=== PATIENT | female | born 1940 | race Caucasian/White ===

== ENCOUNTER 2018-09-15 11:35 | Emergency (ER) | payer MEDICARE, BC ==
[2018-09-15] MEDS ORDERED: Pantoprazole 40 MG Vial IVPUSH ONE (11:46)
[2018-09-15] MEDS ORDERED: Ondansetron 4 MG/2 ML SDV IVPUSH ONE (11:46)
[2018-09-15] MEDS ORDERED: Famotidine 20 MG/2 ML SDV IVPUSH ONE (11:46)
--- NOTE | 2018-09-15 11:46 | EDM.PDOC ---
ED HPI GENERAL MEDICAL PROBLEM - General Chief Complaint: Gastrointestinal Problem Stated Complaint: constipation Time Seen by Provider: 09/15/18 11:45 Source of Information: Reports: Patient, Family (), Old Records ([facility] chart/EMR) History Limitations: Reports: No Limitations - History of Present Illness INITIAL COMMENTS - FREE TEXT/NARRATIVE: The patient was brought to the emergency room via private automobile for evaluation of progressive constipation associated with nonspecific rectal pressure and lower abdominal pain/cramping with some nausea, which she rates at 10/10. Patient has been using OTC laxatives, including Senna and MiraLAX during the last 2-3 days with no results and no bowel movement for at least 8 days. Note the patient was on oxycodone for recent low back surgery as below and discharged on Ultram for pain control. No recent history of other abdominal pain , heartburn, emesis, diarrhea, melena, gross hematochezia, or any food intolerance, including fatty foods, etc.. The patient denies any chest pain/ pressure, heart flutter, dizziness, orthostasis, orthopnea, diaphoresis, paresthesias, recent decreased exercise tolerance, or any other anginal-type symptoms. She denies any gross hematuria, colic, or other UTI symptoms. The patient also denies any recent fever, cough, wheezing, dyspnea, etc.. The symptoms have progressed during the last 2?3 days. Onset: Gradual Onset Date: 09/13/18 Duration: Constant, Getting Worse Location: Reports: Abdomen, Back (Standard postoperative back surgery pain). Denies: Head, Face, Neck, Chest, Pelvis, Upper Extremity, Left, Upper Extremity , Right, Radiates to Quality: Reports: Pressure, Same as Previous Episode Severity: Severe Improves with: Reports: None Worsens with: Reports: None Context: Reports: Other (As above). Denies: Sick Contact, Trauma Associated Symptoms: Reports: Nausea/Vomiting (No emesis). Denies: Confusion, Chest Pain, Cough, Diaphoresis, Fever/Chills, Headaches, Loss of Appetite, Seizure, Shortness of Breath, Weakness Treatments EXHIBIT ARTIST: Reports: Other Medication(s) (As above) Rectal Pain Score (Numeric/FACES): 10 - Related Data Allergies Allergy/AdvReac Type Severity Reaction Status Date / Time codeine Allergy Stomach Verified 09/15/18 11:39 Upset Home Meds: Home Meds ALPRAZolam [Xanax] 0.25 mg PO BEDTIME 07/13/14 [History] Cetirizine HCl [Zyrtec] 10 mg PO DAILY 07/13/14 [History] Potassium Chloride 10 meq PO BID 07/13/14 [History] Omeprazole Magnesium [Prilosec Otc] 20 mg PO DAILY 12/07/15 [History] Acetaminophen [Tylenol] 650 mg PO Q4H PRN 09/15/18 [History] Ascorbate Calcium [Vitamin C] 500 mg PO DAILY 09/15/18 [History] Calcium Citrate/Vitamin D3 [Citracal + D Maximum Caplet] 1 each PO DAILY [History] Fluticasone Propionate [Flonase] 1 inh NS DAILY 09/15/18 [History] Methenamine Hippurate [Hiprex] 1 tab PO DAILY 09/15/18 [History] Polyethylene Glycol 3350 [MiraLAX] 17 gm PO DAILY PRN 09/15/18 [History] Sennosides [Senna] 8.6 mg PO BID PRN 09/15/18 [History] amLODIPine [Norvasc] 10 mg PO DAILY 09/15/18 [History] traMADol [Ultram] 50 mg PO Q4H PRN 09/15/18 [History] Past Medical History HEENT History: Reports: Allergic Rhinitis, Cataract, Impaired Vision, Other ( See Below). Denies: Glaucoma, Hard of Hearing, Macular Degeneration, Otitis Media, Retinal Detachment Other HEENT History: Patient wears glasses. Cardiovascular History: Reports: Arrhythmia, High Cholesterol, Hypertension, PVD , Other (See Below). Denies: Afib, Aneurysm, Blood Clots/VTE/DVT, CAD, Cardiomyopathy, Heart Failure, Heart Murmur, IA, Syncope Other Cardiovascular History: Incomplete right bundle branch block. Mild carotid occlusive disease. Respiratory History: Reports: None, COPD, Intubation, Previous. Denies: Asthma , Bronchitis, Recurrent, Intubation, Difficult, PE, Pneumothorax, Pulmonary Fibrosis, Sleep Apnea, TB Gastrointestinal History: Reports: Cholelithiasis, Chronic Constipation, Diverticulosis, GERD, Hemorrhoids, Hiatal Hernia, Irritable Bowel Syndrome, Other (See Below). Denies: Celiac Disease, Chronic Diarrhea, Colon Polyp, Fecal Incontinence, Gastritis, GI Bleed, Hepatitis, Inflammatory Bowel Disease, Jaundice, Pancreatitis, PUD Other Gastrointestinal History: History of distal esophageal dilatation post EGD on 09/27/12 with no surgery required. Mild mostly sigmoid diverticulosis. Genitourinary History: Reports: Renal Calculus, Urinary Incontinence, UTI, Recurrent, Other (See Below). Denies: Acute Renal Failure, Chronic Renal Insuffiency, STD Other Genitourinary History: Recurrent excited urolithiasis with last episode on 04/28/12 with spontaneous passage at that time. ECHOCARDIOLOGIST History: Reports: Dysfunctional Uterine Bleeding. Denies: : 0 LMP (Approximate): Other (See Below) Other ECHOCARDIOLOGIST History: Post surgical menopause secondary to dysfunctional uterine bleeding as below. Musculoskeletal History: Reports: Arthritis, Back Pain, Chronic, Fracture, Neck Pain, Chronic, Osteoarthritis, Other (See Below). Denies: Fibromyalgia, Gout, RA, SLE Other Musculoskeletal History: L2 vertebral body compression fracture. Multilevel degenerative disc disease including bilateral foraminal stenoses requiring surgeries as below. Neurological History: Reports: Headaches, Chronic, Migraines, Neuropathy, Peripheral. Denies: Alzheimers Disease, Cerebral Aneurysms, Cerebral Palsy, Concussion, CVA, Head Trauma, MS, Parkinson's, Seizure, TIA Psychiatric History: Reports: Anxiety, Depression. Denies: Abuse, Victim of, ADD, ADHD, Addiction, Dementia, Psych Hospitalization(s), PTSD, Suicide Attempt , Suicidal Ideation Endocrine/Metabolic History: Reports: None. Denies: Diabetes, Type I, Diabetes , Type II, Diabetes Mellitus, Type 3c, Hypothyroidism, IDDM, Osteopenia, Osteoporosis Hematologic History: Reports: None. Denies: Anemia, Blood Transfusion(s), Iron Deficiency Immunologic History: Reports: None. Denies: AIDS, HIV, SLE Oncologic (Cancer) History: Reports: Cervix (Abnormal Pap smear with status post hysterectomy for dysfunctional uterine bleeding), Other (See Below). Denies: Basal Cell Carcinoma, Breast, Colon, Hodgkin's Lymphoma, Leukemia, Lymphoma, Malignant Melanoma, Non-Hodgkin's Lymphoma, Ovarian, Squamous Cell Carcinoma, Uterine Other Oncologic History: Abnormal Pap smear with status post hysterectomy for dysfunctional uterine bleeding Dermatologic History: Reports: None. Denies: Eczema, Psoriasis - Infectious Disease History Infectious Disease History: Reports: Influenza (Influenza A on 07/13/14), Mumps. Denies: C-Difficile, Chicken Pox (Patient uncertain), Helicobacter Pylori, Measles, MRSA, Pertussis (Whooping Cough), Rheumatic Fever, RSV, Rubella , Scarlet Fever, Shingles, TB - Past Surgical History Head Surgeries/Procedures: Reports: None HEENT Surgical History: Reports: Adenoidectomy, Cataract Surgery, Tonsillectomy , Other (See Below). Denies: Eye Surgery, Laser Surgery, LASIK, Myringotomy w Tube(s), Naso-Sinus Surgery, Oral Surgery Other HEENT Surgeries/Procedures: Tonsillectomy and adenoidectomy at age 17. Bilateral cataract surgery in about 2015. Cardiovascular Surgical History: Reports: None. Denies: Varicose, Vascular Surgery Respiratory Surgical History: Reports: None. Denies: Thoracentesis GI Surgical History: Reports: EGD, Hernia, Inguinal, Other (See Below). Denies : Hernia, Abdominal, Hernia Repair/Other, Polypectomy Other GI Surgeries/Procedures: Left Sided inguinal hernia repair in June 2018. Distal esophageal dilatation post EGD on 09/27/12. Appendectomy with concomitant cholecystectomy in 1974. Last colonoscopy on 09/27/12 with previous evaluation on 12/23/02. Female Surgical History: Reports: Breast Biopsy, Cervical Cryotherapy, Hysterectomy, Kidney stone extraction, Salpingo-Oophorectomy, Other (See Below) . Denies: Lithotripsy/ESWL, Tubal Ligation Other Female Surgeries/Procedures: Left-sided breast biopsy for benign disease and early 1999. Cervical cryotherapy secondary to cervical dysplasia as above. Complete hysterectomy including bilateral salpingo-oophorectomy secondary to dysfunctional uterine bleeding in 1990. Kidney stone extraction from the right side in about 1974. Bladder suspension in 2006. Endocrine Surgical History: Reports: None. Denies: Thyroid Biopsy Neurological Surgical History: Reports: Discectomy, Laminectomy, Lumbar Spine, Sacral Spine, Spinal Fusion, Other (See Below). Denies: C-Spine, Scoliosis, Thoracic Spine, Vertebroplasty Other Neurological Surgeries/Procedures: Multilevel lumbar and sacral laminectomies, discectomy, and hardware removal on 09/08/18 with similar previous surgery on 08/28/17. L4-S1 spinal fusion on 08/28/15. Musculoskeletal Surgical History: Reports: ORIF, Shoulder Surgery, Other (See Below) Oncologic Surgical History: Reports: Biopsy of Breast, Other (See Below) Other Oncologic Surgeries/Procedures: Benign disease as above. Dermatological Surgical History: Reports: None - Past Imaging History Past Imaging History: Reports: CAT Scan (CT scan of the abdomen and pelvis on . Soft tissue CT of the neck and CT of the chest on 09/27/12.), Mammogram ( Last mammogram in June 2018 by patient history.), MRI (MRI of the lumbar spine on 03/12/18.), Stress Testing (Cardiolite stress test on 07/09/06 with an ejection fraction of 60% with previous similar evaluations on 06/03/04.) Social & Family History - Family History Cardiac: Reports: Bypass, CAD, Hypertension, IA, Pacemaker, Other (See Below). Denies: Afib, Aneurysm, Arrhythmia, Blood Clots/VTE/DVT Other Cardiac Family History: 2 brothers with coronary artery disease and history of CABG. Father with fatal IA at age 59. Mother with fatal IA at age 73. Brother with fatal IA in his late 60s. 3 brothers with MIs in their 40s which needed bypass surgery as above. Another brother with fatal IA early 80s. Another brother with IA at age 74 additional pacemaker placement. First Cousin with fatal IA at age 41. Paternal uncles 3 with fatal MIs. Hypertension in mother and 3 brothers. - Tobacco Use Smoking Status *Q: Never Smoker Tobacco Use Within Last Twelve Months: No Used Tobacco, but Quit: No Smoking Cessation Information Provided To Patient: No Second Hand Smoke Exposure: No Second Hand Smoke Education Provided: No - Caffeine Use Caffeine Use: Reports: Soda (1 soda every 3 weeks.). Denies: Coffee, Energy Drinks, Tea - Alcohol Use Alcohol Use History: Yes Days Per Week of Alcohol Use: 0 Number of Drinks Per Day: 1 Number of Drinks Per Day Comment: Usually mixed drink once per month. No previous DWIs, problems with alcohol abuse, etc. 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 ED EXAM, GI/ABD - Physical Exam Exam: See Below Exam Limited By: No Limitations General Appearance: Alert, WD/WN, No Apparent Distress, Anxious (Moderate) Eyes: Bilateral: Normal Appearance (No nystagmus. Patient wearing glasses.), EOMI Ears: Normal External Exam, Normal Canal, Hearing Grossly Normal, Normal TMs Nose: Normal Inspection, Normal Mucosa, No Blood Throat/Mouth: Normal Inspection, Normal Lips, Normal Teeth, Normal Gums, Normal Oropharynx, Normal Voice, No Airway Compromise. No: Dysphagia, Perioral Cyanosis Head: Atraumatic, Normocephalic. No: Facial Swelling, Facial Tenderness, Sinus Tenderness Neck: Supple, Non-Tender, Full Range of Motion, Carotid Bruit (Mild bilateral carotid bruits). No: Lymphadenopathy (L), Lymphadenopathy (R), Thyromegaly Respiratory/Chest: No Respiratory Distress, Lungs Clear, Normal Breath Sounds, No Accessory Muscle Use, Chest Non-Tender. No: Pleural Rub, Retractions Cardiovascular: Normal Peripheral Pulses, No Gallop, No JVD, No Murmur, No Rub, Tachycardia (Mild with regular rhythm). No: No Edema (Dependent edema as below) , Gallop/S3, Gallop/S4, Friction Rub GI/Abdominal Exam: Normal Bowel Sounds, Soft, Non-Tender, No Organomegaly, No Distention, No Abnormal Bruit, No Mass, Pelvis Stable, Other (Obese). No: Guarding, Rebound (Female) Exam: Deferred Rectal (Female) Exam: Fecal Impaction (Severe), Hemorrhoids (Grade 34 internal/ external hemorrhoids), Other (Brown stool initially with mild gross hematochezia after disimpaction). No: Bloody Stool, Decreased Rectal Tone, Perirectal Abscess, Rectal Fissure, Tenderness (No Marlon space tenderness however rectal vault discomfort secondary to impaction) Back Exam: Normal Inspection, Full Range of Motion. No: CVA Tenderness (L), CVA Tenderness (R), Muscle Spasm Extremities: Normal Range of Motion, Non-Tender, Normal Capillary Refill, Pedal Edema (Trace bilateral pedal/pretibial edema). No: No Pedal Edema, Jennifer's Sign Neurological: Alert, Oriented, CN II-XII Intact, Normal Cognition, Normal Gait, Normal Reflexes (Negative Babinski's), No Motor/Sensory Deficits Psychiatric: Anxious (Moderate), Depressed Mood (Mild to moderate with adequate eye contact) Skin Exam: Ecchymosis (Mild surrounding postsurgical ecchymosis without significant acute bleeding), Rash, Wound/Incision (Large post operative incisions in the lumbar region and right superior pelvic region with Steri- Strips in place. Note some surrounding multiple patches of mild skin inflammation likely secondary to previous dressings during recent hospitalization. No acute drainage or local signs of infection.). No: Diaphoretic, Lymphangitis, Petechiae Lymphatic: No Adenopathy Course - Vital Signs Last Recorded V/S: Last Vital Signs Temp 36.4 C 09/15/18 11:40 Pulse 99 09/15/18 14:05 Resp 16 09/15/18 14:05 BP 140/70 09/15/18 14:05 Pulse Ox 99 09/15/18 14:05 Vital Signs - 24 hr 09/15/18 09/15/18 09/15/18 11:40 12:35 13:45 Temperature [ 36.4 C Oral] Pulse, 133 H 114 H 128 H Peripheral [ Pulse Oximetry] Respiratory 24 H 20 24 H Rate Blood Pressure 127/83 142/77 H 124/73 [Upper Arm] O2 Sat by Pulse 100 99 96 Oximetry 09/15/18 14:05 Temperature [ Oral] Pulse, 99 Peripheral [ Pulse Oximetry] Respiratory 16 Rate Blood Pressure 140/70 [Upper Arm] O2 Sat by Pulse 99 Oximetry - Orders/Labs/Meds Orders: Active Orders 24 hr Category Date Time Status Enema [RC] ASDIRECTED Care 09/15/18 12:41 Active Peripheral IV Care [RC] . DIRECTED Care 09/15/18 11:46 Active Nothing Per Oral Diet [DIET] Diet 09/15/18 Breakfast Active Abdomen Series w Chest 1V [CR] Stat Exams 09/15/18 11:46 Taken Sodium Chloride 0.9% [Saline Flush] Med 09/15/18 11:46 Active 10 ml FLUSH ASDIRECTED PRN Obtain Past Medical Record [OM.PC] Urgent Oth 09/15/18 11:46 Active Peripheral IV Insertion Adult [OM.PC] Stat Oth 09/15/18 11:46 Ordered Resuscitation Status Stat Resus Stat 09/15/18 11:46 Ordered Medication Orders Sodium Chloride (Saline Flush) 10 ml FLUSH ASDIRECTED PRN PRN Reason: Keep Vein Open Last Admin: 09/15/18 13:04 Dose: 10 ml Admin: 09/15/18 12:11 Dose: 10 ml Labs: Laboratory Tests 09/15/18 09/15/18 09/15/18 Range/Units 11:45 11:45 11:45 WBC 7.7 (4.0-10.2) K/uL RBC 5.09 (3.77-5.09) M/uL Hgb 14.3 (11.7-15.5) g/dL Hct 43.2 (34.0-46.0) % MCV 84.9 (84.0-98.0) fL MCH 28.1 L (28.2-33.3) pg MCHC 33.1 (31.7-36.0) g/dL RDW 14.9 H (11.2-14.1) % Plt Count 232 (150-350) K/uL Neut % (Auto) 65.2 (45.0-80.0) % Lymph % (Auto) 19.4 (10.0-50.0) % Dent % (Auto) 10.8 (2.0-14.0) % Eos % (Auto) 4.3 (0.0-5.0) % Baso % (Auto) 0.3 (0.0-2.0) % Neut # (Auto) 5.01 (1.40-7.00) K/uL Lymph # (Auto) 1.49 (0.50-3.50) K/uL Dent # (Auto) 0.83 (0.00-1.00) K/uL Eos # (Auto) 0.33 (0.00-0.50) K/uL Baso # (Auto) 0.02 (0.00-0.20) K/uL PT 10.0 (9.5-12.0) SEC INR 0.9 APTT 25.1 (21.0-31.3) SEC Sodium (136-145) mmol/L Potassium (3.5-5.1) mmol/L Chloride (98-107) mmol/L Carbon Dioxide (21.0-32.0) mmol/L BUN (7-18) mg/dL Creatinine (0.51-1.17) mg/dL Est Cr Clr Drug Dosing mL/min Estimated GFR (MDRD) mL/min Glucose (74-106) mg/dL Lactic Acid (0.4-2.0) mmol/L Uric Acid (2.6-7.2) mg/dL Calcium (8.5-10.1) mg/dL Magnesium (1.8-2.4) mg/dL Total Bilirubin (0.2-1.0) mg/dL AST (15-37) U/L ALT (12-78) U/L Alkaline Phosphatase (46-116) IU/L Total Protein (6.4-8.2) g/dL Albumin (3.4-5.0) g/dL Amylase 51 (25-115) U/L Lipase (73-393) U/L 09/15/18 09/15/18 Range/Units 11:45 11:45 WBC (4.0-10.2) K/uL RBC (3.77-5.09) M/uL Hgb (11.7-15.5) g/dL Hct (34.0-46.0) % MCV (84.0-98.0) fL MCH (28.2-33.3) pg MCHC (31.7-36.0) g/dL RDW (11.2-14.1) % Plt Count (150-350) K/uL Neut % (Auto) (45.0-80.0) % Lymph % (Auto) (10.0-50.0) % Dent % (Auto) (2.0-14.0) % Eos % (Auto) (0.0-5.0) % Baso % (Auto) (0.0-2.0) % Neut # (Auto) (1.40-7.00) K/uL Lymph # (Auto) (0.50-3.50) K/uL Dent # (Auto) (0.00-1.00) K/uL Eos # (Auto) (0.00-0.50) K/uL Baso # (Auto) (0.00-0.20) K/uL PT (9.5-12.0) SEC INR APTT (21.0-31.3) SEC Sodium 136 (136-145) mmol/L Potassium 3.6 (3.5-5.1) mmol/L Chloride 99 (98-107) mmol/L Carbon Dioxide 27.4 (21.0-32.0) mmol/L BUN 12 (7-18) mg/dL Creatinine 0.75 (0.51-1.17) mg/dL Est Cr Clr Drug Dosing 51.96 mL/min Estimated GFR (MDRD) > 60 mL/min Glucose 145 H (74-106) mg/dL Lactic Acid 1.1 (0.4-2.0) mmol/L Uric Acid 4.7 (2.6-7.2) mg/dL Calcium 9.4 (8.5-10.1) mg/dL Magnesium 1.9 (1.8-2.4) mg/dL Total Bilirubin 0.4 (0.2-1.0) mg/dL AST 21 (15-37) U/L ALT 40 (12-78) U/L Alkaline Phosphatase 177 H (46-116) IU/L Total Protein 7.1 (6.4-8.2) g/dL Albumin 3.2 L (3.4-5.0) g/dL Amylase (25-115) U/L Lipase 92 (73-393) U/L Meds: Medications Generic Name Dose Route Start Last Admin Trade Name Howardq PRN Reason Stop Dose Admin Sodium Chloride 10 ml 09/15/18 11:46 09/15/18 13:04 Saline Flush FLUSH 10 ml ASDIRECTED PRN Administration Keep Vein Open Discontinued Medications Generic Name Dose Route Start Last Admin Trade Name Freq PRN Reason Stop Dose Admin Famotidine 40 mg 09/15/18 11:46 09/15/18 12:10 Pepcid IVPUSH 09/15/18 11:47 40 mg ONETIME ONE Administration Ketorolac Tromethamine 30 mg 09/15/18 12:57 09/15/18 13:02 Toradol IVPUSH 09/15/18 12:58 30 mg ONETIME ONE Administration Magnesium Citrate 0 ml 09/15/18 13:00 09/15/18 13:50 Citrate Of Magnesia PO 09/15/18 13:01 296 ml ONETIME ONE Administration Ondansetron HCl 4 mg 09/15/18 11:46 09/15/18 12:11 Zofran IVPUSH 09/15/18 11:47 4 mg ONETIME ONE Administration Pantoprazole Sodium 40 mg 09/15/18 11:46 09/15/18 12:11 Protonix Iv IVPUSH 09/15/18 11:47 40 mg ONETIME ONE Administration Polyethylene Glycol 17 gm 09/15/18 13:00 09/15/18 13:50 Miralax PO 09/15/18 13:01 17 gm ONETIME ONE Administration - Radiology Interpretation Free Text/Narrative:: Heart monitor showed mild sinus tachycardia with heart rates in the 100s with increased rate to 140s with stool disimpaction. No ectopy or arrhythmia. Rate improved to the 90s at time of discharge. Acute abdominal x-rays shows evidence of mild aortic valve calcification with additional mild to moderate COPD changes with no cardiomegaly, CHF, pulmonary infiltrates, free air, significant ileus, or obstruction. There is moderate amounts of diffuse stool with mildly increased bowel gaseous pattern and very occasional fluid levels. Note status post lumbar sacral fixation. Departure - Departure Time of Disposition: 14:20 Disposition: Home, Self-Care 01 Condition: Good Clinical Impression: Hypertension, Osteoarthritis, Mixed anxiety depressive disorder, Peptic reflux disease, Hyperlipidemia, Abdominal pain, Constipation - Discharge Information *PRESCRIPTION DRUG MONITORING PROGRAM REVIEWED*: Not Applicable *COPY OF PRESCRIPTION DRUG MONITORING REPORT IN PATIENT THANIA: Not Applicable Instructions: High-Fiber Diet, Constipation, Adult, [id number], Fecal Impaction, Diverticulosis Referrals: PCP,Unknown [Primary Care Provider] - Forms: ED Department Discharge Additional Instructions: 1. Follow up with your regular provider in 10-14 days as needed, if symptoms persist. Bring these discharge instructions with you to that visit.. 2. Compliance with daily use of laxatives as per discharge instructions and as discussed. 3. [place] diet including encouragement of oral fluids such as sports drinks, etc. for 24-48 hours as directed. Advance to heart healthy, high-fiber, diverticulosis diet as tolerated thereafter. 4. Tylenol 650 mg by mouth every 4 hours and/or OTC ibuprofen 2-3 tabs by mouth every 6 hours with food as directed./needed. You may stagger these medications for 48-72 hours only, which essentially means that you are receiving a pain medication about every 2 hours. Next dose of ibuprofen as needed in 6 hours secondary to medications given in the emergency room. 5. Immediately after this visit verify that your cellular telephone's voicemail has been activated and is empty. Also verify that your home telephone 's answering machine is operating properly and has space to receive messages. Note that it is sometimes necessary for us to be able to contact you at a later date to discuss your medical care. 6. Please remember that we are ALWAYS here for you and want to answer any questions you may have. Feel free to call the hospital any time and we call you back JAJA. 7. Attempt to decrease tramadol use as discussed - Problem List & Annotations (1) Abdominal pain SNOMED Code(s): 62011640 Code(s): R10.9 - UNSPECIFIED ABDOMINAL PAIN Status: Acute Priority: High Current Visit: Yes Onset Date: ~09/13/18 Annotation/Comment:: Improved symptoms prior to discharge. Lower abdominal pain and rectal pressure secondary to significant stool impaction with overall good results with manual disimpaction by this provider and also soapsuds enema by emergency room nurse. Note some mild gross hematochezia after manual disimpaction with no evidence of significant injury, etc. Qualifiers: Abdominal location: lower abdomen, unspecified Qualified Code(s): R10.30 - Lower abdominal pain, unspecified (2) Constipation SNOMED Code(s): 88969090 Code(s): K59.00 - CONSTIPATION, UNSPECIFIED Status: Acute Priority: High Current Visit: Yes Onset Date: ~09/13/18 Annotation/Comment:: Significant constipation secondary to narcotic medications during recent surgery , hospitalization, and also increased postoperative Ultram use. Patient was previously only on daily Ultram use for her chronic osteoarthritis. Patient and her were counseled on complications with this medication with this medication to be used with discretion the future. They have not tried NSAIDs to this point, however she has have been using Tylenol. Qualifiers: Constipation type: drug induced constipation Qualified Code(s): K59.03 - Drug induced constipation (3) Hyperlipidemia SNOMED Code(s): 58071154 Code(s): E78.5 - HYPERLIPIDEMIA, UNSPECIFIED Status: Chronic Priority: Medium Current Visit: Yes Annotation/Comment:: No current medical therapy with patient previously on fish oil. Continue to observe closely by her regular provider. Qualifiers: Hyperlipidemia type: unspecified Qualified Code(s): E78.5 - Hyperlipidemia , unspecified (4) Hypertension SNOMED Code(s): 22765069 Code(s): I10 - ESSENTIAL (PRIMARY) HYPERTENSION Status: Chronic Priority : Medium Current Visit: Yes Annotation/Comment:: Continue to observe closely by her regular providers. Relatively stable in the emergency room. Mild borderline tachycardia secondary to her current discomfort as above. No chest pain or anginal type symptoms. Improved at time of discharge. Note anxiety component. Qualifiers: Hypertension type: essential hypertension Qualified Code(s): I10 - Essential (primary) hypertension (5) Mixed anxiety depressive disorder SNOMED Code(s): 113938126 Code(s): F41.8 - OTHER SPECIFIED ANXIETY DISORDERS Status: Chronic Priority: Medium Current Visit: Yes Annotation/Comment:: Moderate control based on today's exam. Continue to observe closely by her regular providers. (6) Osteoarthritis SNOMED Code(s): 683524246 Code(s): M19.90 - UNSPECIFIED OSTEOARTHRITIS, UNSPECIFIED SITE Status: Chronic Priority: Medium Current Visit: Yes Annotation/Comment:: Postoperative pain after recent back surgery. Her arthritis is otherwise stable. Decrease Ultram use and trial with additional ibuprofen encouraged as per discharge instructions. Note IV Toradol given in the emergency room, which patient did tolerate well. Continue turtle shell back brace, etc. as directed by your orthopedic surgeon. Qualifiers: Osteoarthritis location: multiple joints Osteoarthritis type: primary Qualified Code(s): M15.0 - Primary generalized (osteo)arthritis (7) Peptic reflux disease SNOMED Code(s): 342839503 Code(s): K21.9 - GASTRO-ESOPHAGEAL REFLUX DISEASE WITHOUT ESOPHAGITIS Status: Chronic Priority: Medium Current Visit: Yes Annotation/Comment:: Stable with current medical therapy. High-dose IV Pepcid and IV Protonix given in the emergency room as GI prophylaxis. - Problem List Review Problem List Initiated/Reviewed/Updated: Yes - My Orders Last 24 Hours: My Active Orders 09/15/18 11:46 Peripheral IV Care [RC] . DIRECTED Abdomen Series w Chest 1V [CR] Stat Sodium Chloride 0.9% [Saline Flush] 10 ml FLUSH ASDIRECTED PRN Obtain Past Medical Record [OM.PC] Urgent Peripheral IV Insertion Adult [OM.PC] Stat Resuscitation Status Stat 09/15/18 12:41 Enema [RC] ASDIRECTED 09/15/18 Breakfast Nothing Per Oral Diet [DIET] - Assessment/Plan Last 24 Hours: My Active Orders 09/15/18 11:46 Peripheral IV Care [RC] . DIRECTED Abdomen Series w Chest 1V [CR] Stat Sodium Chloride 0.9% [Saline Flush] 10 ml FLUSH ASDIRECTED PRN Obtain Past Medical Record [OM.PC] Urgent Peripheral IV Insertion Adult [OM.PC] Stat Resuscitation Status Stat 09/15/18 12:41 Enema [RC] ASDIRECTED 09/15/18 Breakfast Nothing Per Oral Diet [DIET] Assessment:: As above Plan: As above. Extensive precautions were given to the patient and her , who are in agreement with the treatment plan. See Patient Instructions for further treatment and plan.
[2018-09-15 12:08] LABS: CHLORIDE,CL 99 mmol/L (98-107); SODIUM,NA 136 mmol/L (136-145)
[2018-09-15] MEDS: Sodium Chloride 0.9% 10 ML Syringe FLUSH PRN ×2 (12:11→13:04)
[2018-09-15] MEDS ORDERED: Ketorolac 30 MG/ML SDV IVPUSH ONE (12:57)
[2018-09-15] MEDS ORDERED: Polyethylene Glycol 3350 Powder 17 GM Packet PO ONE (13:00)
[2018-09-15] MEDS ORDERED: Magnesium Citrate Solution 296 ML Bottle PO ONE (13:00)
[2018-09-15 15:53] VITALS: BP 140/70
== END 2018-09-15 14:20 | disposition home or self-care (01) ==
LOC: LL.ED 11:35
DX: K59.00 Constipation, unspecified (principal); I10 Essential (primary) hypertension; F41.8 Other specified anxiety disorders; K21.9 Gastro-esophageal reflux disease without esophagitis; E78.5 Hyperlipidemia, unspecified; M15.0 Primary generalized (osteo)arthritis; E78.00 Pure hypercholesterolemia, unspecified; Z88.5 Allergy status to narcotic agent; Z79.899 Other long term (current) drug therapy
CPT/HCPCS: 36415; 74022; 80053; 82150; 82272; 83605; 83690; 83735; 84550; 85025; 85610; 85730; 96374; 96375; 99283-25; 99284; A9270-GY; C9113; J1885; J2405; J3490

== ENCOUNTER → 2019-05-14 | Outpatient (CLI) | payer MEDICARE, BC | LOC: LL.CLIN 09:12 | PROVIDERS: ATTEND Otolaryngology | DX: J30.89 Other allergic rhinitis (principal) | CPT/HCPCS: 95117 ==

== ENCOUNTER → 2019-06-03 | Outpatient (CLI) | payer MEDICARE, BC | LOC: LL.CLIN 10:15 | PROVIDERS: ATTEND Otolaryngology | DX: J30.89 Other allergic rhinitis (principal) | CPT/HCPCS: 95117 ==

== ENCOUNTER 2019-08-26 11:31 | Emergency (ER) | payer MEDICARE, BC ==
[2019-08-26] MEDS ORDERED: Sodium Chloride 0.9% 10 ML Syringe FLUSH PRN (11:57)
--- NOTE | 2019-08-26 11:57 | EDM.PDOC ---
ED HPI GENERAL MEDICAL PROBLEM - General Chief Complaint: Respiratory Problem Stated Complaint: increased shortness of breath Time Seen by Provider: 08/26/19 11:50 Source of Information: Reports: Patient, Family (), Old Records ([facility] chart/EMR), Other ([facility] EMR) History Limitations: Reports: No Limitations - History of Present Illness INITIAL COMMENTS - FREE TEXT/NARRATIVE: The patient was brought to the emergency room via private automobile by her for evaluation of mild progressive nonspecific dyspnea since her recent PTCA/stent on 08/21/19 as below. Note that she did have a posterior inferior STEMI at that time with no return of her chest pain or other anginal-type symptoms. The patient denies any chest pain/pressure, heart flutter, dizziness, orthostasis, orthopnea, diaphoresis, paresthesias, recent decreased exercise tolerance, or any other anginal-type symptoms. No recent history of abdominal pain, heartburn, nausea, diarrhea, melena, gross hematochezia, or any food intolerance, including fatty foods, etc.. She denies any gross hematuria, colic , or other UTI symptoms. The patient also denies any recent fever, cough, wheezing, dyspnea, etc.. She denies any pain or other discomfort. Onset: Gradual Onset Date: 08/21/19 Duration: Getting Worse Location: Reports: Other (No pain) Severity: Moderate Improves with: Reports: Rest Worsens with: Reports: Movement Context: Reports: Other (As above). Denies: Sick Contact, Trauma Associated Symptoms: Reports: Shortness of Breath. Denies: Confusion, Chest Pain, Cough, Diaphoresis, Fever/Chills, Headaches, Loss of Appetite, Nausea/ Vomiting, Rash, Seizure, Syncope, Weakness Treatments WELDING ESTIMATOR: Reports: Other (see below) (None) - Related Data Allergies Allergy/AdvReac Type Severity Reaction Status Date / Time codeine Allergy Stomach Verified 08/26/19 11:33 Upset Home Meds: Home Meds ALPRAZolam [Xanax] 0.25 mg PO BEDTIME 07/13/14 [History] Cetirizine HCl [Zyrtec] 10 mg PO DAILY 07/13/14 [History] Potassium Chloride 2 tab PO DAILY 07/13/14 [History] Omeprazole Magnesium [Prilosec Otc] 20 mg PO DAILY 12/07/15 [History] Fluticasone Propionate [Flonase] 1 inh NS DAILY 09/15/18 [History] Methenamine Hippurate [Hiprex] 1 tab PO BID 09/15/18 [History] Ascorbic Acid [Vitamin C] 1 tab PO DAILY 08/26/19 [History] Aspirin [Halfprin] 81 mg PO DAILY 08/26/19 [History] Calcium Citrate 250 mg PO DAILY 08/26/19 [History] Docusate Calcium [Stool Softener] 2 tab PO BEDTIME 08/26/19 [History] Ezetimibe [Zetia] 10 mg PO DAILY 08/26/19 [History] Furosemide [Lasix] 20 mg PO DAILY #14 tab 08/26/19 [Rx] Ibuprofen 400 mg PO Q6HR PRN 08/26/19 [History] Magnesium Oxide 1 tab PO DAILY 08/26/19 [History] Metoprolol Succinate [Toprol XL] 25 mg PO DAILY 08/26/19 [History] Nitroglycerin [Nitrostat] 0.4 mg SL ASDIRECTED 08/26/19 [History] Potassium Chloride 2 tab PO BIDMEALS #1 tablet.er 08/26/19 [Rx] Pravastatin [Pravachol] 40 mg PO BEDTIME 08/26/19 [History] Sodium Chloride 0.9% [Saline Flush] 10 ml FLUSH ASDIRECTED PRN syringe [Rx] Ticagrelor [Brilinta] 90 mg PO BID 08/26/19 [History] amLODIPine Besylate [Norvasc] 10 mg PO DAILY 08/26/19 [History] Past Medical History HEENT History: Reports: Allergic Rhinitis, Cataract, Impaired Vision, Other ( See Below). Denies: Glaucoma, Hard of Hearing, Macular Degeneration, Otitis Media, Retinal Detachment Other HEENT History: Patient wears glasses. Cardiovascular History: Reports: Arrhythmia, CAD, High Cholesterol, Hypertension , OR, PTCA, PVD, Stents, Other (See Below). Denies: Afib, Aneurysm, Blood Clots /VTE/DVT, Cardiomyopathy, Heart Failure, Heart Murmur, Syncope Other Cardiovascular History: Posterior-inferior STEMI of the right coronary artery with an 100% RCA occlusion and successful PTCA/stent 1 as below. Additional mild multivessel disease including 3045 percent stenosis of the proximal LAD and distal left circumflex coronary arteries. Mild post operative sinus arrhythmia. Incomplete right bundle branch block. Mild carotid occlusive disease. Respiratory History: Reports: None, Bronchitis, Recurrent, COPD, Intubation, Previous. Denies: Asthma, Intubation, Difficult, PE, Pneumonia, Recurrent, Pneumothorax, Sleep Apnea Gastrointestinal History: Reports: Cholelithiasis, Chronic Constipation, Diverticulosis, GERD, Hemorrhoids, Hiatal Hernia, Irritable Bowel Syndrome, Other (See Below). Denies: Celiac Disease, Chronic Diarrhea, Colon Polyp, Fecal Incontinence, Gastritis, GI Bleed, Hepatitis, Inflammatory Bowel Disease, Jaundice, Pancreatitis Other Gastrointestinal History: History of distal esophageal dilatation post EGD on 09/27/12 with no surgery required. Mild mostly sigmoid diverticulosis. Genitourinary History: Reports: Chronic Renal Insuffiency, Renal Calculus, Urinary Incontinence, UTI, Recurrent, Other (See Below). Denies: Acute Renal Failure, Hydronephrosis, STD Other Genitourinary History: Grade 3 chronic renal insufficiency. Recurrent urolithiasis with last episode on 04/28/12 with spontaneous passage at that time. Persistent vaginal prolapse despite hysterectomy as below. DIRECTOR OF RESEARCH AND DEVELOPMENT History: Reports: Dysfunctional Uterine Bleeding. Denies: , Spontaneous : 0 LMP (Approximate): Other (See Below) Other DIRECTOR OF RESEARCH AND DEVELOPMENT History: Post surgical menopause secondary to dysfunctional uterine bleeding as below. Musculoskeletal History: Reports: Arthritis, Back Pain, Chronic, Fracture, Neck Pain, Chronic, Osteoarthritis, Other (See Below). Denies: Gout, RA, SLE Other Musculoskeletal History: L2 vertebral body compression fracture. Multilevel degenerative disc disease including bilateral foraminal stenoses requiring surgeries as below. Left proximal and distal humeral fractures in the with surgery of the distal fracture as below. Neurological History: Reports: Headaches, Chronic, Migraines, Neuropathy, Peripheral, Other (See Below). Denies: Cerebral Aneurysms, Concussion, CVA, Head Trauma, MS, Parkinson's, Seizure, TIA, Vertigo Other Neuro History: Radiculopathy secondary to osteoarthritis. Psychiatric History: Reports: Anxiety, Depression. Denies: Abuse, Victim of, ADD, ADHD, Addiction, Psych Hospitalization(s), PTSD, Suicide Attempt, Suicidal Ideation Endocrine/Metabolic History: Reports: Hypokalemia, Other (See Below). Denies: Diabetes, Type I, Diabetes, Type II, Diabetes Mellitus, Type 3c, Hypothyroidism , IDDM, Obesity/BMI 30+ Other Endocrine/Metabolic History: Hypoalbuminemia. Hematologic History: Reports: None. Denies: Anemia, Blood Transfusion(s), Iron Deficiency Immunologic History: Reports: None. Denies: AIDS, HIV, SLE Oncologic (Cancer) History: Reports: Cervix, Other (See Below). Denies: Basal Cell Carcinoma, Bladder, Breast, Colon, Hodgkin's Lymphoma, Leukemia, Lymphoma, Malignant Melanoma, Non-Hodgkin's Lymphoma, Ovarian, Squamous Cell Carcinoma, Uterine Other Oncologic History: Abnormal Pap smear with status post hysterectomy for dysfunctional uterine bleeding. History of cervical dysplasia with iron therapy as below. Dermatologic History: Reports: None. Denies: Eczema, Psoriasis - Infectious Disease History Infectious Disease History: Reports: Influenza (Influenza A on 07/13/14), Mumps. Denies: C-Difficile, Chicken Pox (Patient uncertain), Helicobacter Pylori, Measles, MRSA, Pertussis (Whooping Cough), Rheumatic Fever, RSV, Rubella , Scarlet Fever, Shingles, TB - Past Surgical History Head Surgeries/Procedures: Reports: None HEENT Surgical History: Reports: Adenoidectomy, Cataract Surgery, Tonsillectomy , Other (See Below). Denies: Eye Surgery, Laser Surgery, LASIK, Myringotomy w Tube(s), Naso-Sinus Surgery, Oral Surgery Other HEENT Surgeries/Procedures: Tonsillectomy and adenoidectomy at age 17. Bilateral cataract surgery in about 2016. Cardiovascular Surgical History: Reports: Coronary Artery Stent, Percutaneous Transluminal Angioplasty, Other (See Below). Denies: Varicose Other Cardiovascular Surgeries/Procedures: Emergent PTCA/stent 1 of the right coronary artery on 08/21/19. Respiratory Surgical History: Reports: None. Denies: Thoracentesis GI Surgical History: Reports: Appendectomy, Cholecystectomy, EGD, Hernia, Inguinal, Other (See Below). Denies: Colonoscopy, Hernia Repair/Other Other GI Surgeries/Procedures: Left Sided inguinal hernia repair on 06/20/2018. Distal esophageal dilatation post EGD on 09/27/12. Appendectomy with concomitant cholecystectomy in 1974. Last colonoscopy on 09/27/12 with previous evaluation on 12/23/02. Female Surgical History: Reports: Breast Biopsy, Cervical Cryotherapy, Cystoscopy, Hysterectomy, Kidney stone extraction, Salpingo-Oophorectomy, Other (See Below). Denies: Section, D&C, Lithotripsy/ESWL, Tubal Ligation Other Female Surgeries/Procedures: Left-sided breast biopsy for benign disease in the early 1999s. Cervical cryotherapy secondary to cervical dysplasia as above. Complete hysterectomy including bilateral salpingo- oophorectomy secondary to dysfunctional uterine bleeding in 1990. Kidney stone extraction from the right side in about 1974. Bladder suspension in 2006. Cystoscopies on 06/27/17 and 03/07/17. Endocrine Surgical History: Reports: None. Denies: Thyroid Biopsy Neurological Surgical History: Reports: Discectomy, Laminectomy, Lumbar Spine, Sacral Spine, Spinal Fusion, Other (See Below). Denies: C-Spine Other Neurological Surgeries/Procedures: Multilevel lumbar and sacral laminectomies, discectomy, and hardware removal on 09/08/18 with subsequent anterior/posterior spinal fusion. Discectomy of L3-4 with concomitant L2-L4 spinal fusion on 08/28/17. L4-S1 fusion on 08/28/15. Musculoskeletal Surgical History: Reports: ORIF, Shoulder Surgery, Other (See Below) (Distal left humeral ORIF of humeral fracture in the .). Denies: Arthroscopic Knee, Arthroscopic Procedure, Carpal Tunnel, Ganglion Cyst, Joint Replacement Other Musculoskeletal Surgeries/Procedures:: Unknown type of left shoulder surgery on 08/28/17. Distal left humeral ORIF of humeral fracture in the . Left second metatarsal bone spur excision on 07/19/12. Oncologic Surgical History: Reports: Biopsy of Breast, Other (See Below) Other Oncologic Surgeries/Procedures: Benign disease as above. Dermatological Surgical History: Reports: None - Past Imaging History Past Imaging History: Reports: Angiography (08/21/19 with findings as above.), Cardiac Echo (08/21/19 with ejection fraction of 6065 percent), CAT Scan (CT scan of the chest for cardiac calcification scoring on 08/15/17 and 02/23/15. CT scan of the abdomen and pelvis on 07/23/16, 12/24/12, and 04/29/12. CT of the lumbar spine on 02/02/15. Soft tissue CT of the neck and CT of the chest on .), Mammogram (Last mammogram in June 2018 by patient history.), MRI (MRI of the lumbar spine on 03/12/18. And 03/13/17.), Stress Testing (Cardiolite stress test on 07/09/06 with an ejection fraction of 60% with previous similar evaluations on 06/03/04.), Ultrasound (Renal ultrasound on 02/18/15.) Social & Family History - Family History Cardiac: Reports: Bypass, CAD, Hypertension, OR, Pacemaker, Other (See Below). Denies: Afib, Aneurysm, Arrhythmia, Blood Clots/VTE/DVT Other Cardiac Family History: 2 brothers with coronary artery disease and history of CABG. Father with fatal OR at age 59. Mother with fatal OR at age 73. Brother with fatal OR in his late 60s. 3 brothers with MIs in their 40s which needed bypass surgery as above. Another brother with fatal OR early 80s. Another brother with OR at age 74 additional pacemaker placement. First Cousin with fatal OR at age 41. Paternal uncles 3 with fatal MIs. Hypertension in mother and 3 brothers. - Tobacco Use Smoking Status *Q: Never Smoker Tobacco Use Within Last Twelve Months: No Used Tobacco, but Quit: No Smoking Cessation Information Provided To Patient: No Second Hand Smoke Exposure: No Second Hand Smoke Education Provided: No - Caffeine Use Caffeine Use: Reports: Soda (1 soda every 3 weeks.). Denies: Coffee, Energy Drinks, Tea - Alcohol Use Alcohol Use History: Yes Days Per Week of Alcohol Use: 0 Number of Drinks Per Day: 1 Number of Drinks Per Day Comment: Usually mixed drinks once per month. No previous DWIs, problems with alcohol abuse, etc. 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 ED EXAM, GENERAL - Physical Exam Exam: See Below Exam Limited By: No Limitations General Appearance: Alert, WD/WN, No Apparent Distress, Anxious (Mild to moderate) Eye Exam: Bilateral Eye: Corneal Abrasion, Normal Inspection (No nystagmus. The patient is wearing glasses.), PERRL Ears: Normal External Exam, Normal Canal, Hearing Grossly Normal, Normal TMs Nose: Normal Inspection, Normal Mucosa, No Blood Throat/Mouth: Normal Inspection, Normal Lips, Normal Teeth, Normal Gums, Normal Oropharynx, Normal Voice, No Airway Compromise. No: Dysphagia, Perioral Cyanosis Head: Atraumatic, Normocephalic. No: Facial Swelling, Facial Tenderness, Sinus Tenderness Neck: Supple, Non-Tender, Full Range of Motion, Carotid Bruit (Borderline mild) . No: Lymphadenopathy (L), Lymphadenopathy (R), Thyromegaly Respiratory/Chest: No Respiratory Distress, Normal Breath Sounds, No Accessory Muscle Use, Chest Non-Tender, Rales (Mild bilateral basilar rales). No: Pleural Rub, Retractions Cardiovascular: Normal Peripheral Pulses, Regular Rate, Rhythm, No Gallop, No JVD, No Murmur, No Rub. No: No Edema (Stable chronic bilateral dependent edema as below), Gallop/S3, Gallop/S4, Friction Rub Peripheral Pulses: 2+: Radial (L) (No evidence of pseudoaneurysm), Radial (R) ( No evidence of pseudoaneurysm), Dorsalis Pedis (L), Dorsalis Pedis (R) GI/Abdominal: Normal Bowel Sounds, Soft, Non-Tender, No Organomegaly, No Distention, No Abnormal Bruit, No Mass. No: Guarding (Female) Exam: Deferred Rectal (Female) Exam: Deferred Back Exam: Normal Inspection, Full Range of Motion. No: CVA Tenderness (L), CVA Tenderness (R), Muscle Spasm Extremities: Normal Range of Motion, Non-Tender, Normal Capillary Refill, Pedal Edema (Stable +1 bilateral pedal/pretibial edema), Other (Moderate ecchymosis over the distal radial aspects of the forearms bilaterally, left greater than right, with extension into the dorsal aspect of the left hand bilaterally secondary to recent heart catheterizations, etc.). No: Jennifer's Sign, Limited Range of Motion Neurological: Alert, Oriented, CN II-XII Intact, Normal Cognition, Normal Gait, Normal Reflexes (Negative Babinski's), No Motor/Sensory Deficits Psychiatric: Anxious (Mild to moderate), Depressed Mood (Mild) Skin Exam: Warm, Dry, Intact, Normal Color, No Rash, Ecchymosis (Moderate bilateral forearm ecchymosis as above with additional multiple areas of ecchymosis on the abdomen secondary to previous anticoagulation therapy). No: Diaphoretic Lymphatic: No Adenopathy EKG INTERPRETATION EKG Date: 08/26/19 Time: 12:02 Rhythm: NSR Rate (Beats/Min): 72 [place]: Normal (Left) P-Wave: Enlarged (Mild diffuse biphasic P waves) QRS: Normal (0.08 seconds with repolarization changes with T-wave inversions in leads 3 and aVF) ST-T: Other (As above) QT: Normal CO/PQ Interval: 0.17 seconds with pulmonary hypertension by EKG Comparison: No Change (Last EKG on 08/21/19 - postoperative? EKG tracings not available with written report reviewed from [facility]) EKG Interpretation Comments: 1. Stable inferior wall cardiac ischemia-? with status post posterior-inferior STEMI 2. Left atrial enlargement 3. Pulmonary hypertension by EKG 4. Repolarization changes Course - Vital Signs Last Recorded V/S: Last Vital Signs Temp 36.9 C 08/26/19 13:30 Pulse 77 08/26/19 13:30 Resp 14 08/26/19 13:30 BP 113/44 L 08/26/19 13:30 Pulse Ox 97 08/26/19 13:30 Vital Signs - 24 hr 08/26/19 08/26/19 08/26/19 11:50 12:00 12:30 Temperature [ 37.0 C Oral] Pulse, 75 79 79 Peripheral [ Pulse Oximetry] Respiratory 18 18 18 Rate Blood Pressure 132/64 131/59 L 120/58 L [Left Upper Arm ] O2 Sat by Pulse 99 98 94 L Oximetry 08/26/19 08/26/19 13:00 13:30 Temperature [ 36.9 C Oral] Pulse, 76 77 Peripheral [ Pulse Oximetry] Respiratory 18 14 Rate Blood Pressure 126/92 H 113/44 L [Left Upper Arm ] O2 Sat by Pulse 93 L 97 Oximetry - Orders/Labs/Meds Orders: Active Orders 24 hr Category Date Time Status Cardiac Monitoring [RC] . DIRECTED Care 08/26/19 11:58 Active EKG Documentation Completion [RC] ASDIRECTED Care 08/26/19 11:58 Active Oxygen Therapy, ED [RC] PRN Care 08/26/19 11:58 Active Peripheral IV Care [RC] . DIRECTED Care 08/26/19 11:58 Active Pulse Oximetry [RC] CONTINUOUS Care 08/26/19 11:58 Active Up With Assistance [RC] PFP Care 08/26/19 11:58 Active Vital Signs [RC] PFP Care 08/26/19 11:58 Active Nothing per Oral Now Diet [DIET] Diet 08/26/19 Breakfast Active Chest 1V Frontal [CR] Stat Exams 08/26/19 11:58 Taken Sodium Chloride 0.9% [Saline Flush] Med 08/26/19 11:57 Active 10 ml FLUSH ASDIRECTED PRN Obtain Past Medical Record [OM.PC] Urgent Oth 08/26/19 11:58 Active Peripheral IV Insertion Adult [OM.PC] Stat Oth 08/26/19 11:58 Ordered Resuscitation Status Stat Resus Stat 08/26/19 11:57 Ordered Medication Orders Sodium Chloride (Saline Flush) 10 ml FLUSH ASDIRECTED PRN PRN Reason: Keep Vein Open Labs: Laboratory Tests 08/26/19 08/26/19 08/26/19 Range/Units 12:30 12:30 12:30 WBC 5.2 (4.0-10.2) K/uL RBC 5.13 H (3.77-5.09) M/uL Hgb 14.5 (11.7-15.5) g/dL Hct 43.6 (34.0-46.0) % MCV 85.0 (84.0-98.0) fL MCH 28.3 (28.2-33.3) pg MCHC 33.3 (31.7-36.0) g/dL RDW 13.9 (11.2-14.1) % Plt Count 208 (150-350) K/uL Neut % (Auto) 68.4 (45.0-80.0) % Lymph % (Auto) 17.4 (10.0-50.0) % [place] % (Auto) 10.7 (2.0-14.0) % Eos % (Auto) 3.3 (0.0-5.0) % Baso % (Auto) 0.2 (0.0-2.0) % Neut # (Auto) 3.57 (1.40-7.00) K/uL Lymph # (Auto) 0.91 (0.50-3.50) K/uL [place] # (Auto) 0.56 (0.00-1.00) K/uL Eos # (Auto) 0.17 (0.00-0.50) K/uL Baso # (Auto) 0.01 (0.00-0.20) K/uL PT 10.0 (9.5-12.0) SEC INR 0.9 APTT 26.6 (21.0-31.3) SEC D-Dimer, Quantitative 233 (0-400) ng/mL Sodium (136-145) mmol/L Potassium (3.5-5.1) mmol/L Chloride (98-107) mmol/L Carbon Dioxide (21.0-32.0) mmol/L BUN (7-18) mg/dL Creatinine (0.51-1.17) mg/dL Est Cr Clr Drug Dosing Estimated GFR (MDRD) mL/min Glucose (74-106) mg/dL Lactic Acid (0.4-2.0) mmol/L Uric Acid (2.6-7.2) mg/dL Calcium (8.5-10.1) mg/dL Magnesium (1.8-2.4) mg/dL Total Bilirubin (0.2-1.0) mg/dL AST (15-37) U/L ALT (12-78) U/L Alkaline Phosphatase (46-116) IU/L Creatine Kinase (26-308) U/L Creatine Kinase Index (0.0-2.5) % CK-MB (CK-2) (0.00-3.60) ng/mL Troponin I (0.000-0.056) ng/mL NT-Pro-B Natriuret Pep (0-125) pg/mL Total Protein (6.4-8.2) g/dL Albumin (3.4-5.0) g/dL TSH, Ultra Sensitive (0.358-3.740) mIU/mL 08/26/19 08/26/19 Range/Units 12:30 12:30 WBC (4.0-10.2) K/uL RBC (3.77-5.09) M/uL Hgb (11.7-15.5) g/dL Hct (34.0-46.0) % MCV (84.0-98.0) fL MCH (28.2-33.3) pg MCHC (31.7-36.0) g/dL RDW (11.2-14.1) % Plt Count (150-350) K/uL Neut % (Auto) (45.0-80.0) % Lymph % (Auto) (10.0-50.0) % [place] % (Auto) (2.0-14.0) % Eos % (Auto) (0.0-5.0) % Baso % (Auto) (0.0-2.0) % Neut # (Auto) (1.40-7.00) K/uL Lymph # (Auto) (0.50-3.50) K/uL [place] # (Auto) (0.00-1.00) K/uL Eos # (Auto) (0.00-0.50) K/uL Baso # (Auto) (0.00-0.20) K/uL PT (9.5-12.0) SEC INR APTT (21.0-31.3) SEC D-Dimer, Quantitative (0-400) ng/mL Sodium 141 (136-145) mmol/L Potassium 3.9 (3.5-5.1) mmol/L Chloride 105 (98-107) mmol/L Carbon Dioxide 25.3 (21.0-32.0) mmol/L BUN 26 H (7-18) mg/dL Creatinine 0.84 (0.51-1.17) mg/dL Est Cr Clr Drug Dosing TNP Estimated GFR (MDRD) > 60 mL/min Glucose 114 H (74-106) mg/dL Lactic Acid 0.9 (0.4-2.0) mmol/L Uric Acid 6.3 (2.6-7.2) mg/dL Calcium 9.1 (8.5-10.1) mg/dL Magnesium 1.9 (1.8-2.4) mg/dL Total Bilirubin 0.4 (0.2-1.0) mg/dL AST 31 (15-37) U/L ALT 36 (12-78) U/L Alkaline Phosphatase 92 (46-116) IU/L Creatine Kinase 61 (26-308) U/L Creatine Kinase Index 2.0 (0.0-2.5) % CK-MB (CK-2) 1.20 (0.00-3.60) ng/mL Troponin I 1.364 H* (0.000-0.056) ng/mL NT-Pro-B Natriuret Pep 945 H (0-125) pg/mL Total Protein 7.3 (6.4-8.2) g/dL Albumin 3.8 (3.4-5.0) g/dL TSH, Ultra Sensitive 3.576 (0.358-3.740) mIU/mL Meds: Medications Generic Name Dose Route Start Last Admin Trade Name Freq PRN Reason Stop Dose Admin Sodium Chloride 10 ml 08/26/19 11:57 Saline Flush FLUSH ASDIRECTED PRN Keep Vein Open - Radiology Interpretation Free Text/Narrative:: 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 Chest x-ray, portable, shows moderate pulmonary obstructive disease with mild pulmonary hypertension and/or concomitant mild centralized CHF. No cardiomegaly , pulmonary infiltrates, pneumothorax, etc. Status post proximal left humeral fracture with appropriate changes with ORIF of distal humeral fracture not visible in these x-rays Departure - Departure Time of Disposition: 14:10 Disposition: Home, Self-Care 01 Condition: Good Clinical Impression: Mixed anxiety depressive disorder, Peptic reflux disease, PVCs (premature ventricular contractions) Coronary artery disease Qualifiers: Coronary Disease-Associated Artery/Lesion type: [place] artery [place] vs. transplanted heart: [place] heart Associated angina: without angina Qualified Code(s): I25.10 - Atherosclerotic heart disease of [place] coronary artery without angina pectoris Hyperlipidemia Qualifiers: Hyperlipidemia type: unspecified Qualified Code(s): E78.5 - Hyperlipidemia, unspecified Hypertension Qualifiers: Hypertension type: essential hypertension Qualified Code(s): I10 - Essential ( primary) hypertension Osteoarthritis Qualifiers: Osteoarthritis location: multiple joints Osteoarthritis type: primary Qualified Code(s): M15.0 - Primary generalized (osteo)arthritis CHF (congestive heart failure) Qualifiers: Heart failure type: systolic Heart failure chronicity: acute Qualified Code(s) : I50.21 - Acute systolic (congestive) heart failure - Discharge Information *PRESCRIPTION DRUG MONITORING PROGRAM REVIEWED*: Not Applicable *COPY OF PRESCRIPTION DRUG MONITORING REPORT IN PATIENT THANIA: Not Applicable Prescriptions: Furosemide [Lasix] 20 mg PO DAILY #14 tab Potassium Chloride 2 tab PO BIDMEALS #1 tablet.er Instructions: Shortness of Breath, Adult, [id number], Heart Failure, Easy-to- Read Referrals: [facility] MD [Primary Care Provider] - Forms: ED Department Discharge Additional Instructions: 1. Follow-up with your regular provider in 2 days as already scheduled for reevaluation and recommended repeat basic metabolic panel, CK, CK-MB, troponin I , BNP, magnesium level, and uric acid level. 2. Advance activity slowly as previously directed by her fairing worker and regular providers. 3. Bring all medication bottles, including OTC medications and prescriptions, to every appointment with your regular providers, etc. with most updated medication list to be carried with you at all times. 4. Immediately after this visit verify that your cellular telephone's voicemail has been activated and is empty. Also verify that your home telephone 's answering machine is operating properly and has space to receive messages. Note that it is sometimes necessary for us to be able to contact you at a later date to discuss your medical care. 5. Please remember that we are ALWAYS here for you and want to answer any questions you may have. Feel free to call the hospital any time and we call you back JAJA. 6. Please remember that we are ALWAYS here for you and want to answer any questions you may have. Feel free to call the hospital any time and we call you back JAJA. 7. Start furosemide today and increased potassium chloride this afternoon. Sepsis Event Note - Evaluation Sepsis Screening Result: No Definite Risk - Focused Exam Vital Signs: Vital Signs Temp Pulse Resp BP Pulse Ox 08/26/19 13:30 36.9 C 77 14 113/44 L 97 08/26/19 13:00 76 18 126/92 H 93 L 08/26/19 12:30 79 18 120/58 L 94 L 08/26/19 12:00 79 18 131/59 L 98 08/26/19 11:50 37.0 C 75 18 132/64 99 Date Exam was Performed: 08/26/19 Time Exam was Performed: 14:03 - Problem List & Annotations (1) CHF (congestive heart failure) SNOMED Code(s): 71748119 Code(s): I50.9 - HEART FAILURE, UNSPECIFIED Status: Acute Priority: High Onset Date: 08/26/19 Annotation/Comment:: Newly diagnosed mild CHF likely postoperative/post OR with no chest pain or anginal type symptoms. Chest pain protocol was not initiated an time of arrival to the emergency room secondary to absence of anginal complaints. Telephone consultation at 13:[address] Blount, fairing worker at [facility], who is in agreement with our treatment plan with no further treatment recommendations given. Note treatment of today's troponin I from troponin I of 11.792 at [facility] on 08/22/19. Only mild CHF by clinical exam and chest x-ray with mild BNP elevation. EKG and cardiac enzymes are otherwise stable. Note recent echocardiogram on 08/21/19 with excellent ejection fraction of 6065 percent at that time despite acute OR. Initiate low-dose oral Lasix therapy with increase of her potassium chloride. Note that the patient has yet to increase her potassium chloride as previously directed at time of hospital discharge. Medication compliance was strongly encouraged. She already has a follow-up appointment with her regular provider on 09/07 with recommended follow-up blood work as per discharge orders. Activity restrictions were discussed. The patient is apparently about to be scheduled scheduled for a low level cardiac stress test in our facility for entrance into our cardiac rehabilitation program. Qualifiers: Heart failure type: systolic Heart failure chronicity: acute Qualified Code(s): I50.21 - Acute systolic (congestive) heart failure (2) Coronary artery disease SNOMED Code(s): 01521490 Code(s): I25.10 - ATHSCL HEART DISEASE OF LIME CORONARY ARTERY W/O ANG PCTRS Status: Acute Priority: High Onset Date: 08/21/19 Annotation/ Comment:: Note STEMI on 08/21/19 as above with 100% occlusion of the right coronary artery and additional mild multivessel disease. Successful emergent PTCA/stent 1. Otherwise as above. Qualifiers: Coronary Disease-Associated Artery/Lesion type: [place] artery [place] vs. transplanted heart: [place] heart Associated angina: without angina Qualified Code(s): I25.10 - Atherosclerotic heart disease of [place] coronary artery without angina pectoris (3) PVCs (premature ventricular contractions) SNOMED Code(s): 58612971 Code(s): I49.3 - VENTRICULAR PREMATURE DEPOLARIZATION Status: Acute Priority: Medium Onset Date: 08/26/19 Annotation/Comment:: Newly diagnosed today. She is already on a beta geoff. Observe for now. (4) Hyperlipidemia SNOMED Code(s): 56680787 Code(s): E78.5 - HYPERLIPIDEMIA, UNSPECIFIED Status: Chronic Priority: Medium Annotation/Comment:: Currently under therapy. Continue to observe closely by her regular provider. Qualifiers: Hyperlipidemia type: unspecified Qualified Code(s): E78.5 - Hyperlipidemia , unspecified (5) Hypertension SNOMED Code(s): 61462161 Code(s): I10 - ESSENTIAL (PRIMARY) HYPERTENSION Status: Chronic Priority : Medium Annotation/Comment:: Continue to observe closely by her regular providers especially in light of newly initiated Lasix therapy. Note mildly low blood pressure in the emergency room today. Qualifiers: Hypertension type: essential hypertension Qualified Code(s): I10 - Essential (primary) hypertension (6) Mixed anxiety depressive disorder SNOMED Code(s): 787856861 Code(s): F41.8 - OTHER SPECIFIED ANXIETY DISORDERS Status: Chronic Priority: Medium Annotation/Comment:: Moderate control based on today's exam. Continue to observe closely by her regular providers. (7) Osteoarthritis SNOMED Code(s): 758932250 Code(s): M19.90 - UNSPECIFIED OSTEOARTHRITIS, UNSPECIFIED SITE Status: Chronic Priority: Medium Annotation/Comment:: Stable by patient history with the patient no longer using Ultram. Qualifiers: Osteoarthritis location: multiple joints Osteoarthritis type: primary Qualified Code(s): M15.0 - Primary generalized (osteo)arthritis (8) Peptic reflux disease SNOMED Code(s): 203554957 Code(s): K21.9 - GASTRO-ESOPHAGEAL REFLUX DISEASE WITHOUT ESOPHAGITIS Status: Chronic Priority: Medium Annotation/Comment:: Stable by history. Consider change from Prilosec to Pepcid secondary to newly diagnosed coronary artery disease, PTCA/stent, etc. as above. - Problem List Review Problem List Initiated/Reviewed/Updated: Yes - My Orders Last 24 Hours: My Active Orders 08/26/19 11:57 Sodium Chloride 0.9% [Saline Flush] 10 ml FLUSH ASDIRECTED PRN Resuscitation Status Stat 08/26/19 11:58 Cardiac Monitoring [RC] . DIRECTED EKG Documentation Completion [RC] ASDIRECTED Oxygen Therapy, ED [RC] PRN Peripheral IV Care [RC] . DIRECTED Pulse Oximetry [RC] CONTINUOUS Up With Assistance [RC] PFP Vital Signs [RC] PFP Chest 1V Frontal [CR] Stat Obtain Past Medical Record [OM.PC] Urgent Peripheral IV Insertion Adult [OM.PC] Stat 08/26/19 Breakfast Nothing per Oral Now Diet [DIET] - Assessment/Plan Last 24 Hours: My Active Orders 08/26/19 11:57 Sodium Chloride 0.9% [Saline Flush] 10 ml FLUSH ASDIRECTED PRN Resuscitation Status Stat 08/26/19 11:58 Cardiac Monitoring [RC] . DIRECTED EKG Documentation Completion [RC] ASDIRECTED Oxygen Therapy, ED [RC] PRN Peripheral IV Care [RC] . DIRECTED Pulse Oximetry [RC] CONTINUOUS Up With Assistance [RC] PFP Vital Signs [RC] PFP Chest 1V Frontal [CR] Stat Obtain Past Medical Record [OM.PC] Urgent Peripheral IV Insertion Adult [OM.PC] Stat 08/26/19 Breakfast Nothing per Oral Now Diet [DIET] Assessment:: As above Plan: As above. Extensive precautions were given to the patient and her , who are in agreement with the treatment plan. See Patient Instructions for further treatment and plan.
[2019-08-26 12:47] LABS: PTT,PARTIAL THROMBOPLSTIN TIME 26.6 SEC (21.0-31.3)
[2019-08-26 13:00] LABS: CHLORIDE,CL 105 mmol/L (98-107); SODIUM,NA 141 mmol/L (136-145)
[2019-08-26 14:00] VITALS: BP 113/44; PULSE 77
== END 2019-08-26 14:05 | disposition home or self-care (01) ==
LOC: LL.ED 11:31
DX: I49.3 Ventricular premature depolarization (principal); I13.0 Hypertensive heart and chronic kidney disease with heart failure and stage 1 through stage 4 chronic kidney disease, or unspecified chronic kidney disease; N18.3 Chronic kidney disease, stage 3 (moderate); I50.21 Acute systolic (congestive) heart failure; M15.0 Primary generalized (osteo)arthritis; I25.10 Atherosclerotic heart disease of native coronary artery without angina pectoris; K27.9 Peptic ulcer, site unspecified, unspecified as acute or chronic, without hemorrhage or perforation; E78.5 Hyperlipidemia, unspecified; F41.8 Other specified anxiety disorders; J44.9 Chronic obstructive pulmonary disease, unspecified; E78.00 Pure hypercholesterolemia, unspecified; Z79.899 Other long term (current) drug therapy; Z88.5 Allergy status to narcotic agent; Z79.82 Long term (current) use of aspirin
CPT/HCPCS: 36415; 71045; 80053; 82550; 82553; 83605; 83735; 83880; 84443; 84484; 84550; 85025; 85379; 85610; 85730; 93005; 93010; 99284; 99285-25

== ENCOUNTER 2019-09-02 09:55 | Emergency (ER) | payer MEDICARE, BC ==
--- NOTE | 2019-09-02 10:32 | EDM.PDOC ---
ED HPI GENERAL MEDICAL PROBLEM - General Chief Complaint: Chest Pain Stated Complaint: shortness of breath Time Seen by Provider: 09/02/19 10:11 Source of Information: Reports: Patient History Limitations: Reports: No Limitations - History of Present Illness INITIAL COMMENTS - FREE TEXT/NARRATIVE: Patient comes to ER after initially presenting to [facility] with complaint of SOB. SOB complaint has been present for awhile. Patient vague as to when it started but reports intermittent sensation of SOB for what it sounds has been months. Noted increased SOB in early Aug. It ultimately led her to present to ER in [place] and workup indicated possible coronary ischemia. 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 She reports that in addition to feeling SOB, she also felt bloated and had epigastric discomfort. These sensations did not improve after the stent, and she presented to this ER Aug 26. Cardiac workup performed at that time. Troponin noted to be trending downward compared to previous level at [facility] at time of stenting. SOB was felt to be possibly due to mild CHF (elevated ProBNP but no significant signs on chest xray report) and patient advised to try Lasix. She reports not much urine output using the Lasix and no improvement in her complaints since the last visit. Patient is getting frustrated that she is still experiencing symptoms. Has strong family history of DC. She essentially wanted to be told that symptoms were "not at all related to her heart" today and her local clinic provider sent her to the ER. ROS negative for acute HEENT changes, although she complains of sinus congestion that has been going on for some time despite being given a round of antibiotics. Resp + for SOB sensation. She denies pleuritic pain/cough/congestion/sputum production. Can be worse lying flat. Sometimes it improves with burping/as does the epigastric discomfort. Can be worse with activity. Sensation is accompanied by the feeling of epigastric fullness/bloating complaint. CV: negative for actual chest pain/palpitations/radiation of discomfort. Denies edema/weight gain. GI: negative for nausea/emesis/bowel changes. No epigastric complaint with eating but the bloating and fullness improve with burping sometimes. Decreased appetite. No blood in stool. No history of ulcers/hiatal hernia. EGD/ esophageal dilation 2012. Chronic constipation. : negative for changes/UTI complaint/hematuria Psych + for increased anxiety Neuro: negative for acute changes/focal weakness Skin: negative - Related Data Allergies Allergy/AdvReac Type Severity Reaction Status Date / Time codeine Allergy Stomach Verified 09/02/19 10:06 Upset Home Meds: Home Meds ALPRAZolam [Xanax] 0.25 mg PO BEDTIME 07/13/14 [History] Cetirizine HCl [Zyrtec] 10 mg PO DAILY 07/13/14 [History] Potassium Chloride 4 tab PO DAILY 07/13/14 [History] Omeprazole Magnesium [Prilosec Otc] 20 mg PO DAILY 12/07/15 [History] Fluticasone Propionate [Flonase] 1 inh NS DAILY 09/15/18 [History] Methenamine Hippurate [Hiprex] 1 tab PO BID 09/15/18 [History] Ascorbic Acid [Vitamin C] 1 tab PO DAILY 08/26/19 [History] Aspirin [Halfprin] 81 mg PO DAILY 08/26/19 [History] Calcium Citrate 250 mg PO DAILY 08/26/19 [History] Docusate Calcium [Stool Softener] 2 tab PO BEDTIME 08/26/19 [History] Ezetimibe [Zetia] 10 mg PO DAILY 08/26/19 [History] Ibuprofen 400 mg PO Q6HR PRN 08/26/19 [History] Magnesium Oxide 1 tab PO DAILY 08/26/19 [History] Metoprolol Succinate [Toprol XL] 25 mg PO DAILY 08/26/19 [History] Nitroglycerin [Nitrostat] 0.4 mg SL ASDIRECTED 08/26/19 [History] Pravastatin [Pravachol] 40 mg PO BEDTIME 08/26/19 [History] Ticagrelor [Brilinta] 90 mg PO BID 08/26/19 [History] amLODIPine Besylate [Norvasc] 10 mg PO DAILY 08/26/19 [History] Albuterol [Ventolin HFA] 1 puff INH Q6H PRN #1 canister 09/02/19 [Rx] Sucralfate [Carafate] 1 gm PO TID #30 tablet 09/02/19 [Rx] Past Medical History HEENT History: Reports: Allergic Rhinitis, Cataract, Impaired Vision, Other ( See Below) Other HEENT History: Patient wears glasses. 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 Additional mild multivessel disease including 3045 percent stenosis of the proximal LAD and distal left circumflex coronary arteries. Mild post operative sinus arrhythmia. Incomplete right bundle branch block. Mild carotid occlusive disease. Respiratory History: Reports: None, Bronchitis, Recurrent, COPD, Intubation, Previous Gastrointestinal History: Reports: Cholelithiasis, Chronic Constipation, Diverticulosis, GERD, Hemorrhoids, Hiatal Hernia, Irritable Bowel Syndrome, Other (See Below) Other Gastrointestinal History: History of distal esophageal dilatation post EGD on 09/27/12 with no surgery required. Mild mostly sigmoid diverticulosis. Genitourinary History: Reports: Chronic Renal Insuffiency, Renal Calculus, Urinary Incontinence, UTI, Recurrent, Other (See Below) Other Genitourinary History: Grade 3 chronic renal insufficiency. Recurrent urolithiasis with last episode on 04/28/12 with spontaneous passage at that time. Persistent vaginal prolapse despite hysterectomy as below. SAP HANA ARCHITECT History: Reports: Dysfunctional Uterine Bleeding Other SAP HANA ARCHITECT History: Post surgical menopause secondary to dysfunctional uterine bleeding as below. Musculoskeletal History: Reports: Arthritis, Back Pain, Chronic, Fracture, Neck Pain, Chronic, Osteoarthritis, Other (See Below) Other Musculoskeletal History: L2 vertebral body compression fracture. Multilevel degenerative disc disease including bilateral foraminal stenoses requiring surgeries as below. Left proximal and distal humeral fractures in the with surgery of the distal fracture as below. Neurological History: Reports: Headaches, Chronic, Migraines, Neuropathy, Peripheral, Other (See Below) Other Neuro History: Radiculopathy secondary to osteoarthritis. Psychiatric History: Reports: Anxiety, Depression Endocrine/Metabolic History: Reports: Hypokalemia, Other (See Below) Other Endocrine/Metabolic History: Hypoalbuminemia. Hematologic History: Reports: None Immunologic History: Reports: None Oncologic (Cancer) History: Reports: Cervix, Other (See Below) Other Oncologic History: Abnormal Pap smear with status post hysterectomy for dysfunctional uterine bleeding. History of cervical dysplasia with iron therapy as below. Dermatologic History: Reports: None - Infectious Disease History Infectious Disease History: Reports: Influenza, Mumps - Past Surgical History Head Surgeries/Procedures: Reports: None HEENT Surgical History: Reports: Adenoidectomy, Cataract Surgery, Tonsillectomy , Other (See Below) Other HEENT Surgeries/Procedures: Tonsillectomy and adenoidectomy at age 17. Bilateral cataract surgery in about 2016. Cardiovascular Surgical History: Reports: Coronary Artery Stent, Percutaneous Transluminal Angioplasty, Other (See Below) Other Cardiovascular Surgeries/Procedures: Emergent PTCA/stent 1 of the right coronary artery on 08/21/19. Respiratory Surgical History: Reports: None GI Surgical History: Reports: Appendectomy, Cholecystectomy, EGD, Hernia, Inguinal, Other (See Below) Other GI Surgeries/Procedures: Left Sided inguinal hernia repair on 06/20/2018. Distal esophageal dilatation post EGD on 09/27/12. Appendectomy with concomitant cholecystectomy in 1974. Last colonoscopy on 09/27/12 with previous evaluation on 12/23/02. Female Surgical History: Reports: Breast Biopsy, Cervical Cryotherapy, Cystoscopy, Hysterectomy, Kidney stone extraction, Salpingo-Oophorectomy, Other (See Below) Other Female Surgeries/Procedures: Left-sided breast biopsy for benign disease in the early 1999s. Cervical cryotherapy secondary to cervical dysplasia as above. Complete hysterectomy including bilateral salpingo- oophorectomy secondary to dysfunctional uterine bleeding in 1990. Kidney stone extraction from the right side in about 1974. Bladder suspension in 2006. Cystoscopies on 06/27/17 and 03/07/17. Endocrine Surgical History: Reports: None Neurological Surgical History: Reports: Discectomy, Laminectomy, Lumbar Spine, Sacral Spine, Spinal Fusion, Other (See Below) Other Neurological Surgeries/Procedures: Multilevel lumbar and sacral laminectomies, discectomy, and hardware removal on 09/08/18 with subsequent anterior/posterior spinal fusion. Discectomy of L3-4 with concomitant L2-L4 spinal fusion on 08/28/17. L4-S1 fusion on 08/28/15. Musculoskeletal Surgical History: Reports: ORIF, Shoulder Surgery, Other (See Below) Other Musculoskeletal Surgeries/Procedures:: Unknown type of left shoulder surgery on 08/28/17. Distal left humeral ORIF of humeral fracture in the . Left second metatarsal bone spur excision on 07/19/12. Oncologic Surgical History: Reports: Biopsy of Breast, Other (See Below) Other Oncologic Surgeries/Procedures: Benign disease as above. Dermatological Surgical History: Reports: None - Past Imaging History Past Imaging History: Reports: Angiography (08/21/19 with findings as above.), Cardiac Echo (08/21/19 with ejection fraction of 6065 percent), CAT Scan (CT scan of the chest for cardiac calcification scoring on 08/15/17 and 02/23/15. CT scan of the abdomen and pelvis on 07/23/16, 12/24/12, and 04/29/12. CT of the lumbar spine on 02/02/15. Soft tissue CT of the neck and CT of the chest on .), Mammogram (Last mammogram in June 2018 by patient history.), MRI (MRI of the lumbar spine on 03/12/18. And 03/13/17.), Stress Testing (Cardiolite stress test on 07/09/06 with an ejection fraction of 60% with previous similar evaluations on 06/03/04.), Ultrasound (Renal ultrasound on 02/18/15.) Social & Family History - Family History Cardiac: Reports: Bypass, CAD, Hypertension, DC, Pacemaker, Other (See Below) Other Cardiac Family History: 2 brothers with coronary artery disease and history of CABG. Father with fatal DC at age 59. Mother with fatal DC at age 73. Brother with fatal DC in his late 60s. 3 brothers with MIs in their 40s which needed bypass surgery as above. Another brother with fatal DC early 80s. Another brother with DC at age 74 additional pacemaker placement. First Cousin with fatal DC at age 41. Paternal uncles 3 with fatal MIs. Hypertension in mother and 3 brothers. 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 ED EXAM, GENERAL - Physical Exam Exam: See Below Exam Limited By: No Limitations General Appearance: Alert, WD/WN, No Apparent Distress, Anxious Eye Exam: Bilateral Eye: EOMI, PERRL Ears: Hearing Grossly Normal Nose: No: Nasal Deformity, Nasal Swelling, Nasal Drainage Throat/Mouth: Normal Voice, No Airway Compromise Head: Atraumatic, Normocephalic Neck: Normal Inspection, Supple, Non-Tender, Full Range of Motion Respiratory/Chest: No Respiratory Distress, Lungs Clear, Normal Breath Sounds, No Accessory Muscle Use, Chest Non-Tender Cardiovascular: Regular Rate, Rhythm, No Edema, No Murmur GI/Abdominal: Normal Bowel Sounds, Soft, No Distention, Other (mild discomfort with palpation of epigastric area). No: Guarding, Rigid, Rebound, Tender, Mass (Female) Exam: Deferred Rectal (Female) Exam: Deferred Back Exam: No: CVA Tenderness (L), CVA Tenderness (R), Muscle Spasm, Paraspinal Tenderness, Vertebral Tenderness Extremities: Normal Range of Motion, Non-Tender, Normal Capillary Refill Neurological: Alert, Oriented, Normal Cognition, Normal Gait, No Motor/Sensory Deficits Skin Exam: Warm, Dry, Intact, Normal Color EKG INTERPRETATION EKG Date: 09/02/19 Time: 10:17 Rhythm: NSR Rate (Beats/Min): 73 [place]: Normal P-Wave: Present QRS: Normal ST-T: Normal QT: Normal Comparison: No Change Course - Vital Signs Last Recorded V/S: Last Vital Signs Temp 36.1 C 09/02/19 09:56 Pulse 89 09/02/19 11:54 Resp 13 09/02/19 11:54 BP 135/56 L 09/02/19 11:54 Pulse Ox 98 09/02/19 11:54 - Orders/Labs/Meds Orders: Active Orders 24 hr Category Date Time Status EKG Documentation Completion [RC] ASDIRECTED Care 09/02/19 10:12 Ordered RT Aerosol Therapy [RC] ASDIRECTED Care 09/02/19 11:23 Ordered INR,PT,PROTHROMBIN TIME [COAG] Routine Lab 09/02/19 11:44 Received Labs: Laboratory Tests 09/02/19 09/02/19 09/02/19 Range/Units 10:11 10:24 10:24 WBC (4.0-10.2) K/uL RBC (3.77-5.09) M/uL Hgb (11.7-15.5) g/dL Hct (34.0-46.0) % MCV (84.0-98.0) fL MCH (28.2-33.3) pg MCHC (31.7-36.0) g/dL RDW (11.2-14.1) % Plt Count (150-350) K/uL Neut % (Auto) (45.0-80.0) % Lymph % (Auto) (10.0-50.0) % Edwards % (Auto) (2.0-14.0) % Eos % (Auto) (0.0-5.0) % Baso % (Auto) (0.0-2.0) % Neut # (Auto) (1.40-7.00) K/uL Lymph # (Auto) (0.50-3.50) K/uL Edwards # (Auto) (0.00-1.00) K/uL Eos # (Auto) (0.00-0.50) K/uL Baso # (Auto) (0.00-0.20) K/uL D-Dimer, Quantitative 307 (0-400) ng/mL Sodium 142 (136-145) mmol/L Potassium 3.6 (3.5-5.1) mmol/L Chloride 104 (98-107) mmol/L Carbon Dioxide 27.6 (21.0-32.0) mmol/L BUN 22 H (7-18) mg/dL Creatinine 0.89 (0.51-1.17) mg/dL Est Cr Clr Drug Dosing 46.88 mL/min Estimated GFR (MDRD) > 60 mL/min Glucose 120 H (74-106) mg/dL Calcium 9.5 (8.5-10.1) mg/dL Magnesium 1.9 (1.8-2.4) mg/dL Total Bilirubin 0.4 (0.2-1.0) mg/dL AST 24 (15-37) U/L ALT 33 (12-78) U/L Alkaline Phosphatase 96 (46-116) IU/L Troponin I 0.008 (0.000-0.056) ng/mL NT-Pro-B Natriuret Pep 922 H (0-125) pg/mL Total Protein 7.8 (6.4-8.2) g/dL Albumin 4.2 (3.4-5.0) g/dL Amylase (25-115) U/L Lipase (73-393) U/L Specimen Type Urinblad Urine Color Yellow Urine Appearance Clear Urine pH 5.5 (5.0-9.0) Ur Specific [place] 1.010 (1.005-1.030) Urine Protein Negative (NEGATIVE) mg/dL Urine Glucose (UA) Negative (NEGATIVE) mg/dL Urine Ketones Negative (NEGATIVE) mg/dL Urine Occult Blood Negative (NEGATIVE) Urine Nitrite Negative (NEGATIVE) Urine Bilirubin Negative (NEGATIVE) Urine Urobilinogen 0.2 (0.2-1.0) E.U./dL Ur Leukocyte Esterase Negative (NEGATIVE) Urine RBC Not seen /HPF Urine WBC 0-5 /HPF Ur Epithelial Cells Few /LPF Urine Bacteria Few (NONE TO FEW) /HPF 09/02/19 09/02/19 Range/Units 10:24 10:24 WBC 4.7 (4.0-10.2) K/uL RBC 5.52 H (3.77-5.09) M/uL Hgb 15.6 H (11.7-15.5) g/dL Hct 46.9 H (34.0-46.0) % MCV 85.0 (84.0-98.0) fL MCH 28.3 (28.2-33.3) pg MCHC 33.3 (31.7-36.0) g/dL RDW 14.2 H (11.2-14.1) % Plt Count 236 (150-350) K/uL Neut % (Auto) 65.8 (45.0-80.0) % Lymph % (Auto) 22.1 (10.0-50.0) % Edwards % (Auto) 9.8 (2.0-14.0) % Eos % (Auto) 1.9 (0.0-5.0) % Baso % (Auto) 0.4 (0.0-2.0) % Neut # (Auto) 3.10 (1.40-7.00) K/uL Lymph # (Auto) 1.04 (0.50-3.50) K/uL Edwards # (Auto) 0.46 (0.00-1.00) K/uL Eos # (Auto) 0.09 (0.00-0.50) K/uL Baso # (Auto) 0.02 (0.00-0.20) K/uL D-Dimer, Quantitative (0-400) ng/mL Sodium (136-145) mmol/L Potassium (3.5-5.1) mmol/L Chloride (98-107) mmol/L Carbon Dioxide (21.0-32.0) mmol/L BUN (7-18) mg/dL Creatinine (0.51-1.17) mg/dL Est Cr Clr Drug Dosing mL/min Estimated GFR (MDRD) mL/min Glucose (74-106) mg/dL Calcium (8.5-10.1) mg/dL Magnesium (1.8-2.4) mg/dL Total Bilirubin (0.2-1.0) mg/dL AST (15-37) U/L ALT (12-78) U/L Alkaline Phosphatase (46-116) IU/L Troponin I (0.000-0.056) ng/mL NT-Pro-B Natriuret Pep (0-125) pg/mL Total Protein (6.4-8.2) g/dL Albumin (3.4-5.0) g/dL Amylase 84 (25-115) U/L Lipase 119 (73-393) U/L Specimen Type Urine Color Urine Appearance Urine pH (5.0-9.0) Ur Specific [place] (1.005-1.030) Urine Protein (NEGATIVE) mg/dL Urine Glucose (UA) (NEGATIVE) mg/dL Urine Ketones (NEGATIVE) mg/dL Urine Occult Blood (NEGATIVE) Urine Nitrite (NEGATIVE) Urine Bilirubin (NEGATIVE) Urine Urobilinogen (0.2-1.0) E.U./dL Ur Leukocyte Esterase (NEGATIVE) Urine RBC /HPF Urine WBC /HPF Ur Epithelial Cells /LPF Urine Bacteria (NONE TO FEW) /HPF Meds: Medications Discontinued Medications Generic Name Dose Route Start Last Admin Trade Name Freq PRN Reason Stop Dose Admin Albuterol/Ipratropium 3 ml 09/02/19 11:23 09/02/19 11:50 Duoneb 3.0-0.5 Mg/3 Ml NEB 09/02/19 11:24 3 ml ONETIME ONE Administration - Re-Assessments/Exams Free Text/Narrative Re-Assessment/Exam: Patient's complaint is not new as per HPI. It is however more persistent and noticeable per her self report. It does not appear to be due to CHF, though she did have a bump in previous ProBNP. No lung findings on earlier/today's exam, and chest xray from a week ago did not show signs of CHF per Radiology. Normal EF noted on cardiac echo performed at [facility] Aug 21. She has not had any increased weight/edema and nor did she see any improvement in symptoms with Lasix. She does not have any history of lung disease/COPD/asthma. No disease process identified on previous chest xray. Patient does have history of GERD/previous esophageal stricture. Epigastric discomfort/fulness do suggest GI etiology. Discomfort does improve with burping. Patient may be experiencing reflux at night which could in turn cause irritation of the lungs if she is experiencing some aspiration of gastric contents. Plan at this time is to obtain new EKG/labs. Will give trial DuoNeb to see if it has any effect on sensation of SOB. 09/02/19 12:15 Labs overall unremarkable. Troponin negative. Still has elevated proBNP. EKG shows no acute changes. DDimer negative. Hgb mildly elevated/may be in part due to Lasix. Patient does not want to accept that symptoms may be GI in nature. However she did admit to heartburn symptoms at times and intermittent difficulty swallowing. She was informed of negative workup. Call then placed to [facility] and patient discussed with on-call Main[employer] Consultant Dr. Nuñez. He agrees with above and also with current treatment plan. Patient is to keep her follow up appointment for next week on Monday. GI referral can be discussed at that time. Trial DuoNeb given to patient (she refused GI cocktail saying a previous one did not agree with her) and she did report feeling improved in area of SOB complaint. She will be discharged with Rx for Carafate and Albuterol MDI and is to see if they provide relief from above complaints. Lasix will be stopped for now. She is on potassium and is to get that level rechecked by her primary this week and have dose adjusted as needed given discontinuation of lasix. To also be set up for HPylori testing. Departure - Departure Time of Disposition: 12:00 Disposition: Home, Self-Care 01 Condition: Good Clinical Impression: Epigastric discomfort, SOB (shortness of breath) - Discharge Information *PRESCRIPTION DRUG MONITORING PROGRAM REVIEWED*: Not Applicable *COPY OF PRESCRIPTION DRUG MONITORING REPORT IN PATIENT THANIA: Not Applicable Prescriptions: Albuterol [Ventolin HFA] 1 puff INH Q6H PRN #1 canister PRN Reason: Shortness Of Breath Sucralfate [Carafate] 1 gm PO TID #30 tablet Instructions: Shortness of Breath, Adult, [id number] Referrals: PCP,None [Primary Care Provider] - Forms: ED Department Discharge Additional Instructions: Follow up Monday at Cardiology appointment. Discuss obtaining GI referral to be evaluated for esophageal stricture/reflux which may be causing your current symptoms. Follow up with your primary provider and get set up for testing for H.Pylori ( the stool test we spoke about). Recheck K level this week also. Do not eat within 2-3 hours of bedtime. Raise head of your bed up 5-6 inches using wood/books to help decrease chances of reflux entering lungs. Recommend 3 week trial off all gluten/wheat/grain products to see if you symptoms improve. Recommend 3 week trial off dairy after that to see if that is trigger for epigastric discomfort/heartburn. Consider getting digestive enzymes (over the counter/can get at [employer] food store in [place]) and taking one with every main meal to help with digestion. You were given Carafate which can help with epigastric/stomach issues. See if that helps. You were given an inhaler to use to see if it helps your feeling of shortness of breath. Follow up otherwise as needed if you have sudden worsening problems. Sepsis Event Note - Evaluation Sepsis Screening Result: No Definite Risk - Focused Exam Vital Signs: Vital Signs Temp Pulse Resp BP Pulse Ox 09/02/19 11:54 89 13 135/56 L 98 09/02/19 10:56 77 18 129/67 98 09/02/19 10:44 76 15 128/60 99 09/02/19 10:26 76 16 121/64 100 09/02/19 09:56 36.1 C 89 18 135/68 98 Date Exam was Performed: 09/02/19 Time Exam was Performed: 12:19 - My Orders Last 24 Hours: My Active Orders 09/02/19 10:12 EKG Documentation Completion [RC] ASDIRECTED 09/02/19 11:23 RT Aerosol Therapy [RC] ASDIRECTED 09/02/19 11:44 INR,PT,PROTHROMBIN TIME [COAG] Routine - Assessment/Plan Last 24 Hours: My Active Orders 09/02/19 10:12 EKG Documentation Completion [RC] ASDIRECTED 09/02/19 11:23 RT Aerosol Therapy [RC] ASDIRECTED 09/02/19 11:44 INR,PT,PROTHROMBIN TIME [COAG] Routine
[2019-09-02 11:18] LABS: CHLORIDE,CL 104 mmol/L (98-107); SODIUM,NA 142 mmol/L (136-145)
[2019-09-02] MEDS: Albuterol/Ipratropium 3.0-0.5 MG/3 ML Neb Soln NEB ONE (11:50)
[2019-09-02 11:55] VITALS: BP 135/56; PULSE 89
== END 2019-09-02 12:28 | disposition home or self-care (01) ==
LOC: LL.ED 09:55
DX: R06.02 Shortness of breath (principal); R10.13 Epigastric pain; I25.10 Atherosclerotic heart disease of native coronary artery without angina pectoris; E78.00 Pure hypercholesterolemia, unspecified; I25.2 Old myocardial infarction; J44.9 Chronic obstructive pulmonary disease, unspecified; K21.9 Gastro-esophageal reflux disease without esophagitis; I12.9 Hypertensive chronic kidney disease with stage 1 through stage 4 chronic kidney disease, or unspecified chronic kidney disease; N18.3 Chronic kidney disease, stage 3 (moderate); F41.9 Anxiety disorder, unspecified; E87.6 Hypokalemia; Z88.5 Allergy status to narcotic agent; Z79.899 Other long term (current) drug therapy; Z79.82 Long term (current) use of aspirin; Z95.5 Presence of coronary angioplasty implant and graft
CPT/HCPCS: 36415; 80053; 81001; 82150; 83690; 83735; 83880; 84484; 85025; 85379; 93005; 99285-25; J7620-GY

== ENCOUNTER 2019-09-17 23:09 | Emergency (ER) | payer MEDICARE, BC ==
--- NOTE | 2019-09-18 00:14 | EDM.PDOC ---
ED HPI GENERAL MEDICAL PROBLEM - General Chief Complaint: General Stated Complaint: irregular heart rhythm Time Seen by Provider: 09/17/19 23:25 Source of Information: Reports: Patient History Limitations: Reports: No Limitations - History of Present Illness INITIAL COMMENTS - FREE TEXT/NARRATIVE: Pt presents with complaints of palpitations, SOB and reflux symptoms Pt has had recent IA on 08/21/19 with stents Has been seen several times in ER since then for same complaints Pt has hx/o PVC's, GERD and SOB Pt also with some anxiety Onset: Gradual Duration: Day(s):, Intermittent Location: Reports: Chest - Related Data Allergies Allergy/AdvReac Type Severity Reaction Status Date / Time codeine Allergy Stomach Verified 09/02/19 10:06 Upset Home Meds: Home Meds ALPRAZolam [Xanax] 0.25 mg PO BEDTIME 07/13/14 [History] Cetirizine HCl [Zyrtec] 10 mg PO DAILY 07/13/14 [History] Potassium Chloride 2 tab PO DAILY 07/13/14 [History] Omeprazole Magnesium [Prilosec Otc] 20 mg PO DAILY 12/07/15 [History] Fluticasone Propionate [Flonase] 1 inh NS DAILY 09/15/18 [History] Methenamine Hippurate [Hiprex] 1 tab PO DAILY 09/15/18 [History] Ascorbic Acid [Vitamin C] 1 tab PO DAILY 08/26/19 [History] Aspirin [Halfprin] 81 mg PO DAILY 08/26/19 [History] Calcium Citrate 250 mg PO DAILY 08/26/19 [History] Docusate Calcium [Stool Softener] 2 tab PO BEDTIME 08/26/19 [History] Ezetimibe [Zetia] 10 mg PO DAILY 08/26/19 [History] Magnesium Oxide 1 tab PO DAILY 08/26/19 [History] Metoprolol Succinate [Toprol XL] 25 mg PO DAILY 08/26/19 [History] Nitroglycerin [Nitrostat] 0.4 mg SL ASDIRECTED 08/26/19 [History] Pravastatin [Pravachol] 40 mg PO BEDTIME 08/26/19 [History] amLODIPine Besylate [Norvasc] 10 mg PO DAILY 08/26/19 [History] Clopidogrel [Plavix] 75 mg PO DAILY 09/17/19 [History] Isosorbide Mononitrate [Imdur] 30 mg PO DAILY 09/17/19 [History] Past Medical History HEENT History: Reports: Allergic Rhinitis, Cataract, Impaired Vision, Other ( See Below) Other HEENT History: Patient wears glasses. 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 Additional mild multivessel disease including 3045 percent stenosis of the proximal LAD and distal left circumflex coronary arteries. Mild post operative sinus arrhythmia. Incomplete right bundle branch block. Mild carotid occlusive disease. Respiratory History: Reports: None, Bronchitis, Recurrent, COPD, Intubation, Previous Gastrointestinal History: Reports: Cholelithiasis, Chronic Constipation, Diverticulosis, GERD, Hemorrhoids, Hiatal Hernia, Irritable Bowel Syndrome, Other (See Below) Other Gastrointestinal History: History of distal esophageal dilatation post EGD on 09/27/12 with no surgery required. Mild mostly sigmoid diverticulosis. Genitourinary History: Reports: Chronic Renal Insuffiency, Renal Calculus, Urinary Incontinence, UTI, Recurrent, Other (See Below) Other Genitourinary History: Grade 3 chronic renal insufficiency. Recurrent urolithiasis with last episode on 04/28/12 with spontaneous passage at that time. Persistent vaginal prolapse despite hysterectomy as below. 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 Musculoskeletal History: Reports: Arthritis, Back Pain, Chronic, Fracture, Neck Pain, Chronic, Osteoarthritis, Other (See Below) Other Musculoskeletal History: L2 vertebral body compression fracture. Multilevel degenerative disc disease including bilateral foraminal stenoses requiring surgeries as below. Left proximal and distal humeral fractures in the with surgery of the distal fracture as below. Neurological History: Reports: Headaches, Chronic, Migraines, Neuropathy, Peripheral, Other (See Below) Other Neuro History: Radiculopathy secondary to osteoarthritis. Psychiatric History: Reports: Anxiety, Depression Endocrine/Metabolic History: Reports: Hypokalemia, Other (See Below) Other Endocrine/Metabolic History: Hypoalbuminemia. Hematologic History: Reports: None Immunologic History: Reports: None Oncologic (Cancer) History: Reports: Cervix, Other (See Below) Other Oncologic History: Abnormal Pap smear with status post hysterectomy for dysfunctional uterine bleeding. History of cervical dysplasia with iron therapy as below. Dermatologic History: Reports: None - Infectious Disease History Infectious Disease History: Reports: Influenza, Mumps - Past Surgical History Head Surgeries/Procedures: Reports: None HEENT Surgical History: Reports: Adenoidectomy, Cataract Surgery, Tonsillectomy , Other (See Below) Other HEENT Surgeries/Procedures: Tonsillectomy and adenoidectomy at age 17. Bilateral cataract surgery in about 2016. Cardiovascular Surgical History: Reports: Coronary Artery Stent, Percutaneous Transluminal Angioplasty, Other (See Below) Other Cardiovascular Surgeries/Procedures: Emergent PTCA/stent 1 of the right coronary artery on 08/21/19. Respiratory Surgical History: Reports: None GI Surgical History: Reports: Appendectomy, Cholecystectomy, EGD, Hernia, Inguinal, Other (See Below) Other GI Surgeries/Procedures: Left Sided inguinal hernia repair on 06/20/2018. Distal esophageal dilatation post EGD on 09/27/12. Appendectomy with concomitant cholecystectomy in 1974. Last colonoscopy on 09/27/12 with previous evaluation on 12/23/02. Female Surgical History: Reports: Breast Biopsy, Cervical Cryotherapy, Cystoscopy, Hysterectomy, Kidney stone extraction, Salpingo-Oophorectomy, Other (See Below) Other Female Surgeries/Procedures: Left-sided breast biopsy for benign disease in the early 1999s. Cervical cryotherapy secondary to cervical dysplasia as above. Complete hysterectomy including bilateral salpingo- oophorectomy secondary to dysfunctional uterine bleeding in 1990. Kidney stone extraction from the right side in about 1974. Bladder suspension in 2006. Cystoscopies on 06/27/17 and 03/07/17. Endocrine Surgical History: Reports: None Neurological Surgical History: Reports: Discectomy, Laminectomy, Lumbar Spine, Sacral Spine, Spinal Fusion, Other (See Below) Other Neurological Surgeries/Procedures: Multilevel lumbar and sacral laminectomies, discectomy, and hardware removal on 09/08/18 with subsequent anterior/posterior spinal fusion. Discectomy of L3-4 with concomitant L2-L4 spinal fusion on 08/28/17. L4-S1 fusion on 08/28/15. Musculoskeletal Surgical History: Reports: ORIF, Shoulder Surgery, Other (See Below) Other Musculoskeletal Surgeries/Procedures:: Unknown type of left shoulder surgery on 08/28/17. Distal left humeral ORIF of humeral fracture in the . Left second metatarsal bone spur excision on 07/19/12. Oncologic Surgical History: Reports: Biopsy of Breast, Other (See Below) Other Oncologic Surgeries/Procedures: Benign disease as above. Dermatological Surgical History: Reports: None - Past Imaging History Past Imaging History: Reports: Angiography (08/21/19 with findings as above.), Cardiac Echo (08/21/19 with ejection fraction of 6065 percent), CAT Scan (CT scan of the chest for cardiac calcification scoring on 08/15/17 and 02/23/15. CT scan of the abdomen and pelvis on 07/23/16, 12/24/12, and 04/29/12. CT of the lumbar spine on 02/02/15. Soft tissue CT of the neck and CT of the chest on .), Mammogram (Last mammogram in June 2018 by patient history.), MRI (MRI of the lumbar spine on 03/12/18. And 03/13/17.), Stress Testing (Cardiolite stress test on 07/09/06 with an ejection fraction of 60% with previous similar evaluations on 06/03/04.), Ultrasound (Renal ultrasound on 02/18/15.) Social & Family History - Family History Cardiac: Reports: Bypass, CAD, Hypertension, IA, Pacemaker, Other (See Below) Other Cardiac Family History: 2 brothers with coronary artery disease and history of CABG. Father with fatal IA at age 59. Mother with fatal IA at age 73. Brother with fatal IA in his late 60s. 3 brothers with MIs in their 40s which needed bypass surgery as above. Another brother with fatal IA early 80s. Another brother with IA at age 74 additional pacemaker placement. First Cousin with fatal IA at age 41. Paternal uncles 3 with fatal MIs. Hypertension in mother and 3 brothers. 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) ED ROS GENERAL - Review of Systems Review Of Systems: See Below HEENT: Reports: No Symptoms Respiratory: Reports: Shortness of Breath Cardiovascular: Reports: Palpitations GI/Abdominal: Reports: Other (GERD) ED EXAM, GENERAL - Physical Exam Exam: See Below Exam Limited By: No Limitations General Appearance: Alert, WD/WN, No Apparent Distress Neck: Supple Respiratory/Chest: No Respiratory Distress, Lungs Clear, Normal Breath Sounds Cardiovascular: Regular Rate, Rhythm Neurological: Alert, Oriented, No Motor/Sensory Deficits Psychiatric: Normal Affect, Normal Mood Course - Vital Signs Last Recorded V/S: Last Vital Signs Temp 97.6 F 09/17/19 23:10 Pulse 40 L 09/17/19 23:10 Resp 16 09/17/19 23:10 BP 134/76 09/17/19 23:10 Pulse Ox 98 09/17/19 23:10 - Orders/Labs/Meds Orders: Active Orders 24 hr Category Date Time Status EKG Documentation Completion [RC] ASDIRECTED Care 09/17/19 23:33 Active Chest 1V Frontal [CR] Stat Exams 09/17/19 23:32 Taken Labs: Laboratory Tests 09/17/19 09/17/19 Range/Units 23:35 23:35 WBC 5.0 (4.0-10.2) K/uL RBC 4.90 (3.77-5.09) M/uL Hgb 14.0 D (11.7-15.5) g/dL Hct 41.8 (34.0-46.0) % MCV 85.3 (84.0-98.0) fL MCH 28.6 (28.2-33.3) pg MCHC 33.5 (31.7-36.0) g/dL RDW 14.2 H (11.2-14.1) % Plt Count 176 (150-350) K/uL Neut % (Auto) 58.1 (45.0-80.0) % Lymph % (Auto) 26.5 (10.0-50.0) % [place] % (Auto) 10.8 (2.0-14.0) % Eos % (Auto) 4.0 (0.0-5.0) % Baso % (Auto) 0.6 (0.0-2.0) % Neut # (Auto) 2.90 (1.40-7.00) K/uL Lymph # (Auto) 1.32 (0.50-3.50) K/uL [place] # (Auto) 0.54 (0.00-1.00) K/uL Eos # (Auto) 0.20 (0.00-0.50) K/uL Baso # (Auto) 0.03 (0.00-0.20) K/uL Sodium 141 (136-145) mmol/L Potassium 3.9 (3.5-5.1) mmol/L Chloride 105 (98-107) mmol/L Carbon Dioxide 22.8 (21.0-32.0) mmol/L BUN 23 H (7-18) mg/dL Creatinine 1.02 (0.51-1.17) mg/dL Est Cr Clr Drug Dosing 38.43 mL/min Estimated GFR (MDRD) 52 mL/min Glucose 105 (74-106) mg/dL Calcium 9.4 (8.5-10.1) mg/dL Total Bilirubin 0.4 (0.2-1.0) mg/dL AST 20 (15-37) U/L ALT 23 (12-78) U/L Alkaline Phosphatase 87 (46-116) IU/L Troponin I 0.000 (0.000-0.056) ng/mL Total Protein 7.1 (6.4-8.2) g/dL Albumin 3.7 (3.4-5.0) g/dL - Re-Assessments/Exams Free Text/Narrative Re-Assessment/Exam: 09/18/19 00:12 See lab and CXR Pt stable in ER Departure - Departure Time of Disposition: 00:15 Disposition: Home, Self-Care 01 Clinical Impression: Palpitations, PVCs (premature ventricular contractions), SOB (shortness of breath), Epigastric discomfort, Mixed anxiety depressive disorder - Discharge Information *PRESCRIPTION DRUG MONITORING PROGRAM REVIEWED*: Not Applicable *COPY OF PRESCRIPTION DRUG MONITORING REPORT IN PATIENT THANIA: Not Applicable Instructions: Palpitations, [id number] Referrals: Mt Christy MD [Primary Care Provider] - Additional Instructions: Follow up in clinic Sepsis Event Note - Evaluation Sepsis Screening Result: No Definite Risk - Focused Exam Vital Signs: Vital Signs Temp Pulse Resp BP Pulse Ox 09/17/19 23:10 97.6 F 40 L 16 134/76 98 Date Exam was Performed: 09/18/19 Time Exam was Performed: 00:09 - My Orders Last 24 Hours: My Active Orders 09/17/19 23:32 Chest 1V Frontal [CR] Stat 09/17/19 23:33 EKG Documentation Completion [RC] ASDIRECTED - Assessment/Plan Last 24 Hours: My Active Orders 09/17/19 23:32 Chest 1V Frontal [CR] Stat 09/17/19 23:33 EKG Documentation Completion [RC] ASDIRECTED
[2019-09-18 02:45] VITALS: BP 118/53; PULSE 82
== END 2019-09-18 00:30 | disposition home or self-care (01) ==
LOC: LL.ED 23:09
DX: I49.3 Ventricular premature depolarization (principal); F41.8 Other specified anxiety disorders; R10.13 Epigastric pain; I10 Essential (primary) hypertension; I25.2 Old myocardial infarction; Z88.5 Allergy status to narcotic agent; Z79.899 Other long term (current) drug therapy; Z79.82 Long term (current) use of aspirin
CPT/HCPCS: 36415; 71045; 80053; 84484; 85025; 93005; 99284; 99285-25

== ENCOUNTER 2020-11-03 16:07 | Emergency (ER) | payer MEDICARE, BC ==
[2020-11-03] MEDS: Ondansetron 4 MG/2 ML SDV IVPUSH ONE (16:38)
[2020-11-03 16:41] LABS: CHLORIDE,CL 104 mmol/L (98-107); SODIUM,NA 136 mmol/L (136-145)
[2020-11-03] MEDS: GI Cocktail Oral Solution 30 ML PO ONE (16:50)
--- NOTE | 2020-11-03 17:16 | EDM.PDOC ---
ED HPI GENERAL MEDICAL PROBLEM - General Chief Complaint: General Stated Complaint: "Full Feeling In Chest" Time Seen by Provider: 11/03/20 16:08 Source of Information: Reports: Patient History Limitations: Reports: No Limitations - History of Present Illness INITIAL COMMENTS - FREE TEXT/NARRATIVE: Pt with full sensation in chest Has cold feeling Also feels like like sensatio n runs up from stomach to esophagus No SOB No fever No N/V/D Onset: Gradual Duration: Day(s):, Intermittent Location: Reports: Chest - Related Data Allergies Allergy/AdvReac Type Severity Reaction Status Date / Time codeine Allergy Stomach Verified 09/02/19 10:06 Upset Home Meds: Home Meds ALPRAZolam [Xanax] 0.25 mg PO BEDTIME 07/13/14 [History] Cetirizine HCl [Zyrtec] 10 mg PO DAILY 07/13/14 [History] Potassium Chloride 2 tab PO DAILY 07/13/14 [History] Omeprazole Magnesium [Prilosec Otc] 20 mg PO DAILY 12/07/15 [History] Fluticasone Propionate [Flonase] 1 inh NS DAILY 09/15/18 [History] Methenamine Hippurate [Hiprex] 1 tab PO DAILY 09/15/18 [History] Ascorbic Acid [Vitamin C] 1 tab PO DAILY 08/26/19 [History] Aspirin [Halfprin] 81 mg PO DAILY 08/26/19 [History] Calcium Citrate 250 mg PO DAILY 08/26/19 [History] Docusate Calcium [Stool Softener] 2 tab PO BEDTIME 08/26/19 [History] Ezetimibe [Zetia] 10 mg PO DAILY 08/26/19 [History] Magnesium Oxide 1 tab PO DAILY 08/26/19 [History] Metoprolol Succinate [Toprol XL] 25 mg PO DAILY 08/26/19 [History] Nitroglycerin [Nitrostat] 0.4 mg SL ASDIRECTED 08/26/19 [History] Pravastatin [Pravachol] 40 mg PO BEDTIME 08/26/19 [History] amLODIPine Besylate [Norvasc] 10 mg PO DAILY 08/26/19 [History] Clopidogrel [Plavix] 75 mg PO DAILY 09/17/19 [History] Isosorbide Mononitrate [Imdur] 30 mg PO DAILY 09/17/19 [History] Past Medical History HEENT History: Reports: Allergic Rhinitis, Cataract, Impaired Vision, Other (See Below) Other HEENT History: Patient wears glasses. 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 Additional mild multivessel disease including 3045 percent stenosis of the proximal LAD and distal left circumflex coronary arteries. Mild post operative sinus arrhythmia. Incomplete right bundle branch block. Mild carotid occlusive disease. Respiratory History: Reports: None, Bronchitis, Recurrent, COPD, Intubation, Previous Gastrointestinal History: Reports: Cholelithiasis, Chronic Constipation, Diverticulosis, GERD, Hemorrhoids, Hiatal Hernia, Irritable Bowel Syndrome, Other (See Below) Other Gastrointestinal History: History of distal esophageal dilatation post EGD on 09/27/12 with no surgery required. Mild mostly sigmoid diverticulosis. Genitourinary History: Reports: Chronic Renal Insuffiency, Renal Calculus, Urinary Incontinence, UTI, Recurrent, Other (See Below) Other Genitourinary History: Grade 3 chronic renal insufficiency. Recurrent urolithiasis with last episode on 04/28/12 with spontaneous passage at that time. Persistent vaginal prolapse despite hysterectomy as below. 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 Musculoskeletal History: Reports: Arthritis, Back Pain, Chronic, Fracture, Neck Pain, Chronic, Osteoarthritis, Other (See Below) Other Musculoskeletal History: L2 vertebral body compression fracture. Multilevel degenerative disc disease including bilateral foraminal stenoses requiring surgeries as below. Left proximal and distal humeral fractures in the with surgery of the distal fracture as below. Neurological History: Reports: Headaches, Chronic, Migraines, Neuropathy, Peripheral, Other (See Below) Other Neuro History: Radiculopathy secondary to osteoarthritis. Psychiatric History: Reports: Anxiety, Depression Endocrine/Metabolic History: Reports: Hypokalemia, Other (See Below) Other Endocrine/Metabolic History: Hypoalbuminemia. Hematologic History: Reports: None Immunologic History: Reports: None Oncologic (Cancer) History: Reports: Cervix, Other (See Below) Other Oncologic History: Abnormal Pap smear with status post hysterectomy for dysfunctional uterine bleeding. History of cervical dysplasia with iron therapy as below. Dermatologic History: Reports: None - Infectious Disease History Infectious Disease History: Reports: Influenza, Mumps - Past Surgical History Head Surgeries/Procedures: Reports: None HEENT Surgical History: Reports: Adenoidectomy, Cataract Surgery, Tonsillectomy, Other (See Below) Other HEENT Surgeries/Procedures: Tonsillectomy and adenoidectomy at age 17. Bilateral cataract surgery in about 2016. Cardiovascular Surgical History: Reports: Coronary Artery Stent, Percutaneous Transluminal Angioplasty, Other (See Below) Other Cardiovascular Surgeries/Procedures: Emergent PTCA/stent 1 of the right coronary artery on 08/21/19. Respiratory Surgical History: Reports: None GI Surgical History: Reports: Appendectomy, Cholecystectomy, EGD, Hernia, Inguinal, Other (See Below) Other GI Surgeries/Procedures: Left Sided inguinal hernia repair on 06/20/2018. Distal esophageal dilatation post EGD on 09/27/12. Appendectomy with concomitant cholecystectomy in 1974. Last colonoscopy on 09/27/12 with previous evaluation on 12/23/02. Female Surgical History: Reports: Breast Biopsy, Cervical Cryotherapy, Cystoscopy, Hysterectomy, Kidney stone extraction, Salpingo-Oophorectomy, Other (See Below) Other Female Surgeries/Procedures: Left-sided breast biopsy for benign disease in the early . Cervical cryotherapy secondary to cervical dysplasia as above. Complete hysterectomy including bilateral salpingo-oophorectomy secondary to dysfunctional uterine bleeding in 1990. Kidney stone extraction from the right side in about 1974. Bladder suspension in 2006. Cystoscopies on 06/27/17 and 03/07/17. Endocrine Surgical History: Reports: None Neurological Surgical History: Reports: Discectomy, Laminectomy, Lumbar Spine, Sacral Spine, Spinal Fusion, Other (See Below) Other Neurological Surgeries/Procedures: Multilevel lumbar and sacral laminectomies, discectomy, and hardware removal on 09/08/18 with subsequent anterior/posterior spinal fusion. Discectomy of L3-4 with concomitant L2-L4 spinal fusion on 08/28/17. L4-S1 fusion on 08/28/15. Musculoskeletal Surgical History: Reports: ORIF, Shoulder Surgery, Other (See Below) Other Musculoskeletal Surgeries/Procedures:: Unknown type of left shoulder surgery on 08/28/17. Distal left humeral ORIF of humeral fracture in the . Left second metatarsal bone spur excision on 07/19/12. Oncologic Surgical History: Reports: Biopsy of Breast, Other (See Below) Other Oncologic Surgeries/Procedures: Benign disease as above. Dermatological Surgical History: Reports: None - Past Imaging History Past Imaging History: Reports: Angiography (08/21/19 with findings as above.), Cardiac Echo (08/21/19 with ejection fraction of 6065 percent), CAT Scan (CT scan of the chest for cardiac calcification scoring on 08/15/17 and 02/23/15. CT scan of the abdomen and pelvis on 07/23/16, 12/24/12, and 04/29/12. CT of the lumbar spine on 02/02/15. Soft tissue CT of the neck and CT of the chest on 09/27/12.), Mammogram (Last mammogram in June 2018 by patient history.), MRI (MRI of the lumbar spine on 03/12/18. And 03/13/17.), Stress Testing (Cardiolite stress test on 07/09/06 with an ejection fraction of 60% with previous similar evaluations on 06/03/04.), Ultrasound (Renal ultrasound on 02/18/15.) Social & Family History - Family History Cardiac: Reports: Bypass, CAD, Hypertension, NE, Pacemaker, Other (See Below) Other Cardiac Family History: 2 brothers with coronary artery disease and history of CABG. Father with fatal NE at age 59. Mother with fatal NE at age 73. Brother with fatal NE in his late 60s. 3 brothers with MIs in their 40s which needed bypass surgery as above. Another brother with fatal NE early 80s. Another brother with NE at age 74 additional pacemaker placement. First Cousin with fatal NE at age 41. Paternal uncles 3 with fatal MIs. Hypertension in mother an d 3 brothers. 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) ED ROS GENERAL - Review of Systems Review Of Systems: See Below HEENT: Reports: No Symptoms Respiratory: Reports: No Symptoms Cardiovascular: Reports: Chest Pain GI/Abdominal: Reports: No Symptoms Musculoskeletal: Reports: No Symptoms Neurological: Reports: No Symptoms ED EXAM, GENERAL - Physical Exam Exam: See Below General Appearance: Alert, WD/WN Neck: Supple Respiratory/Chest: Lungs Clear Cardiovascular: Regular Rate, Rhythm GI/Abdominal: Soft, Non-Tender Extremities: Normal Inspection Neurological: Alert, Oriented Psychiatric: Normal Affect Course - Orders/Labs/Meds Orders: Active Orders 24 hr Category Date Time Status EKG Documentation Completion [RC] ASDIRECTED Care 11/03/20 16:10 Active Chest 1V Frontal [CR] Stat Exams 11/03/20 16:14 Taken Labs: Laboratory Tests 11/03/20 11/03/20 Range/Units 16:18 16:18 WBC 8.7 (4.0-10.2) K/uL RBC 5.90 H (3.77-5.09) M/uL Hgb 17.4 H D (11.7-15.5) g/dL Hct 50.6 H (34.0-46.0) % MCV 85.8 (84.0-98.0) fL MCH 29.5 (28.2-33.3) pg MCHC 34.4 (31.7-36.0) g/dL RDW 14.3 H (11.2-14.1) % Plt Count 218 (150-350) K/uL Neut % (Auto) 78.3 (45.0-80.0) % Lymph % (Auto) 10.6 (10.0-50.0) % [place] % (Auto) 10.0 (2.0-14.0) % Eos % (Auto) 0.9 (0.0-5.0) % Baso % (Auto) 0.2 (0.0-2.0) % Neut # (Auto) 6.79 (1.40-7.00) K/uL Lymph # (Auto) 0.92 (0.50-3.50) K/uL [place] # (Auto) 0.87 (0.00-1.00) K/uL Eos # (Auto) 0.08 (0.00-0.50) K/uL Baso # (Auto) 0.02 (0.00-0.20) K/uL Sodium 136 (136-145) mmol/L Potassium 4.1 (3.5-5.1) mmol/L Chloride 104 (98-107) mmol/L Carbon Dioxide 23.2 (21.0-32.0) mmol/L BUN 33 H (7-18) mg/dL Creatinine 1.17 (0.51-1.17) mg/dL Est Cr Clr Drug Dosing TNP Estimated GFR (MDRD) 45 mL/min Glucose 139 H (70-99) mg/dL Calcium 8.9 (8.5-10.1) mg/dL Total Bilirubin 0.7 (0.2-1.0) mg/dL AST 15 (15-37) U/L ALT 22 (12-78) U/L Alkaline Phosphatase 68 (46-116) IU/L Troponin I 0.000 (0.000-0.056) ng/mL Total Protein 6.8 (6.4-8.2) g/dL Albumin 3.8 (3.4-5.0) g/dL Meds: Medications Discontinued Medications Generic Name Dose Route Start Last Admin Trade Name Freq PRN Reason Stop Dose Admin Al Hydroxide/Mg Hydroxide 30 ml 11/03/20 16:14 11/03/20 16:50 Gi Cocktail Oral Solution 30 Ml PO 11/03/20 16:15 30 ml ONETIME ONE Administration Ondansetron HCl 8 mg 11/03/20 16:35 11/03/20 16:38 Ondansetron 4 Mg/2 Ml Sdv IVPUSH 11/03/20 16:36 8 mg ONETIME ONE Administration - Re-Assessments/Exams Free Text/Narrative Re-Assessment/Exam: 11/03/20 17:12 Pt stable in ER See lab Troponin 0.00 Pt given GI cocktail in ER Departure - Departure Time of Disposition: 17:15 Disposition: Home, Self-Care 01 Clinical Impression: Atypical chest pain - Discharge Information *PRESCRIPTION DRUG MONITORING PROGRAM REVIEWED*: Not Applicable *COPY OF PRESCRIPTION DRUG MONITORING REPORT IN PATIENT THANIA: Not Applicable Instructions: Nonspecific Chest Pain, Adult Referrals: Mt Christy MD [Primary Care Provider] - Additional Instructions: Follow up in clinic - My Orders Last 24 Hours: My Active Orders 11/03/20 16:10 EKG Documentation Completion [RC] ASDIRECTED 11/03/20 16:14 Chest 1V Frontal [CR] Stat - Assessment/Plan Last 24 Hours: My Active Orders 11/03/20 16:10 EKG Documentation Completion [RC] ASDIRECTED 11/03/20 16:14 Chest 1V Frontal [CR] Stat
[2020-11-03 17:20] VITALS: BP 145/67; PULSE 74
== END 2020-11-03 17:40 | disposition home or self-care (01) ==
LOC: LL.ED 16:07
DX: R07.89 Other chest pain (principal); I25.10 Atherosclerotic heart disease of native coronary artery without angina pectoris; E78.00 Pure hypercholesterolemia, unspecified; I25.2 Old myocardial infarction; M19.90 Unspecified osteoarthritis, unspecified site; I12.9 Hypertensive chronic kidney disease with stage 1 through stage 4 chronic kidney disease, or unspecified chronic kidney disease; J44.9 Chronic obstructive pulmonary disease, unspecified; K21.9 Gastro-esophageal reflux disease without esophagitis; N18.30 Chronic kidney disease, stage 3 unspecified; Z88.5 Allergy status to narcotic agent; Z95.5 Presence of coronary angioplasty implant and graft; Z79.82 Long term (current) use of aspirin
CPT/HCPCS: 36415; 71045; 80053; 84484; 85025; 93005; 96374; 99284; 99285; A9270; J2405

== ENCOUNTER 2021-02-08 22:27 | Emergency (ER) | payer MEDICARE, BC ==
[2021-02-08 23:04] VITALS: BP 158/94; PULSE 86
--- NOTE | 2021-02-08 23:36 | EDM.PDOC ---
ED HPI GENERAL MEDICAL PROBLEM - General Chief Complaint: General Stated Complaint: BP check Time Seen by Provider: 02/08/21 22:35 Source of Information: Reports: Patient History Limitations: Reports: No Limitations - History of Present Illness INITIAL COMMENTS - FREE TEXT/NARRATIVE: Patient presents today for hypertension. She has a history of this along with CAD and CABG. She has been stressed the last couple of days as her borther had a stroke and she is worried she could have one. Also worried as several people in her family have in the last year. Has been taking her medications. went to the chiropractor today and he checked her blood pressure and she was told it was high, 190/80. She went home and was very stressed. She tends not to sit still, was busy all evening and had a family member recheck her blood pressure. it was still 180/90 so she came to the ER after called [facility] ask a nurse and the told her to come in. She states that she has no symptoms, no headache, no neurological changes, no dark urine. She has been eating and drinking normally, some constipation but this is not new. No pain. She is concerned she could have a heart attack or stroke and needs more blood pressure medication. Currently on metoprolol, but was on amlodipine and isosorbide in the past. Last angiogram was last summer with clean vessels. She was told by cardiology she did not need a close follow up appointment. Improves with: Reports: None Worsens with: Reports: None - Related Data Allergies Allergy/AdvReac Type Severity Reaction Status Date / Time codeine Allergy Stomach Verified 02/08/21 23:18 Upset Home Meds: Home Meds ALPRAZolam [Xanax] 0.25 mg PO BEDTIME 07/13/14 [History] Cetirizine HCl [Zyrtec] 10 mg PO DAILY 07/13/14 [History] Omeprazole Magnesium [Prilosec Otc] 20 mg PO DAILY 12/07/15 [History] Methenamine Hippurate [Hiprex] 1 tab PO DAILY 09/15/18 [History] Aspirin [Halfprin] 81 mg PO DAILY 08/26/19 [History] Calcium Citrate 250 mg PO DAILY 08/26/19 [History] Ezetimibe [Zetia] 10 mg PO DAILY 08/26/19 [History] Magnesium Oxide 1 tab PO DAILY 08/26/19 [History] Metoprolol Succinate [Toprol XL] 25 mg PO DAILY 08/26/19 [History] Clopidogrel [Plavix] 75 mg PO DAILY 09/17/19 [History] Past Medical History HEENT History: Reports: Allergic Rhinitis, Cataract, Impaired Vision, Other (See Below) Other HEENT History: Patient wears glasses. 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 Additional mild multivessel disease including 3045 percent stenosis of the proximal LAD and distal left circumflex coronary arteries. Mild post operative sinus arrhythmia. Incomplete right bundle branch block. Mild carotid occlusive disease. Respiratory History: Reports: None, Bronchitis, Recurrent, COPD, Intubation, Previous Gastrointestinal History: Reports: Cholelithiasis, Chronic Constipation, Diverticulosis, GERD, Hemorrhoids, Hiatal Hernia, Irritable Bowel Syndrome, Other (See Below) Other Gastrointestinal History: History of distal esophageal dilatation post EGD on 09/27/12 with no surgery required. Mild mostly sigmoid diverticulosis. Genitourinary History: Reports: Chronic Renal Insuffiency, Renal Calculus, Urinary Incontinence, UTI, Recurrent, Other (See Below) Other Genitourinary History: Grade 3 chronic renal insufficiency. Recurrent urolithiasis with last episode on 04/28/12 with spontaneous passage at that time. Persistent vaginal prolapse despite hysterectomy as below. MICRO COMPUTER SPECIALIST History: Reports: Dysfunctional Uterine Bleeding Other MICRO COMPUTER SPECIALIST History: Post surgical menopause secondary to dysfunctional uterine bleeding as below. Musculoskeletal History: Reports: Arthritis, Back Pain, Chronic, Fracture, Neck Pain, Chronic, Osteoarthritis, Other (See Below) Other Musculoskeletal History: L2 vertebral body compression fracture. Multilevel degenerative disc disease including bilateral foraminal stenoses requiring surgeries as below. Left proximal and distal humeral fractures in the with surgery of the distal fracture as below. Neurological History: Reports: Headaches, Chronic, Migraines, Neuropathy, Peripheral, Other (See Below) Other Neuro History: Radiculopathy secondary to osteoarthritis. Psychiatric History: Reports: Anxiety, Depression Endocrine/Metabolic History: Reports: Hypokalemia, Other (See Below) Other Endocrine/Metabolic History: Hypoalbuminemia. Hematologic History: Reports: None Immunologic History: Reports: None Oncologic (Cancer) History: Reports: Cervix, Other (See Below) Other Oncologic History: Abnormal Pap smear with status post hysterectomy for dysfunctional uterine bleeding. History of cervical dysplasia with iron therapy as below. Dermatologic History: Reports: None - Infectious Disease History Infectious Disease History: Reports: Influenza, Mumps - Past Surgical History Head Surgeries/Procedures: Reports: None HEENT Surgical History: Reports: Adenoidectomy, Cataract Surgery, Tonsillectomy, Other (See Below) Other HEENT Surgeries/Procedures: Tonsillectomy and adenoidectomy at age 17. Bilateral cataract surgery in about 2015. Cardiovascular Surgical History: Reports: Coronary Artery Stent, Percutaneous Transluminal Angioplasty, Other (See Below) Other Cardiovascular Surgeries/Procedures: Emergent PTCA/stent 1 of the right coronary artery on 08/21/19. Respiratory Surgical History: Reports: None GI Surgical History: Reports: Appendectomy, Cholecystectomy, EGD, Hernia, Inguinal, Other (See Below) Other GI Surgeries/Procedures: Left Sided inguinal hernia repair on 06/20/2018. Distal esophageal dilatation post EGD on 09/27/12. Appendectomy with concomitant cholecystectomy in 1974. Last colonoscopy on 09/27/12 with previous evaluation on 12/23/02. Female Surgical History: Reports: Breast Biopsy, Cervical Cryotherapy, Cystoscopy, Hysterectomy, Kidney stone extraction, Salpingo-Oophorectomy, Other (See Below) Other Female Surgeries/Procedures: Left-sided breast biopsy for benign disease in the early 1999s. Cervical cryotherapy secondary to cervical dysplasia as above. Complete hysterectomy including bilateral salpingo-oophorectomy secondary to dysfunctional uterine bleeding in 1990. Kidney stone extraction from the right side in about 1974. Bladder suspension in 2006. Cystoscopies on 06/27/17 and 03/07/17. Endocrine Surgical History: Reports: None Neurological Surgical History: Reports: Discectomy, Laminectomy, Lumbar Spine, Sacral Spine, Spinal Fusion, Other (See Below) Other Neurological Surgeries/Procedures: Multilevel lumbar and sacral laminectomies, discectomy, and hardware removal on 09/08/18 with subsequent anterior/posterior spinal fusion. Discectomy of L3-4 with concomitant L2-L4 spinal fusion on 08/28/17. L4-S1 fusion on 08/28/15. Musculoskeletal Surgical History: Reports: ORIF, Shoulder Surgery, Other (See Below) Other Musculoskeletal Surgeries/Procedures:: Unknown type of left shoulder surgery on 08/28/17. Distal left humeral ORIF of humeral fracture in the . Left second metatarsal bone spur excision on 07/19/12. Oncologic Surgical History: Reports: Biopsy of Breast, Other (See Below) Other Oncologic Surgeries/Procedures: Benign disease as above. Dermatological Surgical History: Reports: None - Past Imaging History Past Imaging History: Reports: Angiography (08/21/19 with findings as above.), Cardiac Echo (08/21/19 with ejection fraction of 6065 percent), CAT Scan (CT scan of the chest for cardiac calcification scoring on 08/15/17 and 02/23/15. CT scan of the abdomen and pelvis on 07/23/16, 12/24/12, and 04/29/12. CT of the lumbar spine on 02/02/15. Soft tissue CT of the neck and CT of the chest on 09/27/12.), Mammogram (Last mammogram in June 2018 by patient history.), MRI (MRI of the lumbar spine on 03/12/18. And 03/13/17.), Stress Testing (Cardiolite stress test on 07/09/06 with an ejection fraction of 60% with previous similar evaluations on 06/03/04.), Ultrasound (Renal ultrasound on 02/18/15.) Social & Family History - Family History Cardiac: Reports: Bypass, CAD, Hypertension, NE, Pacemaker, Other (See Below) Other Cardiac Family History: 2 brothers with coronary artery disease and history of CABG. Father with fatal NE at age 59. Mother with fatal NE at age 73. Brother with fatal NE in his late 60s. 3 brothers with MIs in their 40s which needed bypass surgery as above. Another brother with fatal NE early 80s. Another brother with NE at age 74 additional pacemaker placement. First Cousin with fatal NE at age 41. Paternal uncles 3 with fatal MIs. Hypertension in mother and 3 brothers. 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) ED ROS GENERAL - Review of Systems Review Of Systems: See Below Constitutional: Reports: No Symptoms HEENT: Reports: No Symptoms Respiratory: Reports: No Symptoms, Shortness of Breath (at times due to deconditioning) Cardiovascular: Reports: No Symptoms Endocrine: Reports: No Symptoms GI/Abdominal: Reports: No Symptoms : Reports: No Symptoms Musculoskeletal: Reports: No Symptoms Skin: Reports: No Symptoms Neurological: Reports: No Symptoms Psychiatric: Reports: Anxiety ED EXAM, GENERAL - Physical Exam Exam: See Below Exam Limited By: No Limitations General Appearance: Alert, WD/WN, No Apparent Distress, Anxious Eye Exam: Bilateral Eye: EOMI, Normal Inspection, PERRL Ears: Normal External Exam Nose: Normal Inspection, Normal Mucosa Throat/Mouth: Normal Inspection, Normal Lips, Normal Teeth, Normal Voice Head: Atraumatic Neck: Normal Inspection, Supple, Non-Tender, Full Range of Motion. No: Limited Range of Motion Respiratory/Chest: No Respiratory Distress, Lungs Clear, Normal Breath Sounds, Chest Non-Tender Cardiovascular: Normal Peripheral Pulses, Regular Rate, Rhythm, No Murmur GI/Abdominal: Normal Bowel Sounds, Soft, Non-Tender, No Abnormal Bruit (Female) Exam: Deferred Back Exam: Normal Inspection, Full Range of Motion Extremities: Normal Inspection, Normal Range of Motion, No Pedal Edema, Normal Capillary Refill Neurological: Alert, Oriented, CN II-XII Intact, Normal Cognition, Normal Gait, No Motor/Sensory Deficits, Other (negative pronator drift, normal finger to nose with eyes closed. normal heel to shine, normal strength upper and lower extremities) Psychiatric: Anxious Skin Exam: Warm, Normal Color Course - Vital Signs Last Recorded V/S: Last Vital Signs Temp 36.5 C 02/08/21 23:02 Pulse 86 02/08/21 23:02 Resp 20 02/08/21 23:02 BP 158/94 H 02/08/21 23:02 Pulse Ox 99 02/08/21 23:02 - Re-Assessments/Exams Free Text/Narrative Re-Assessment/Exam: 02/08/21 23:37 extensive discussion with patient about her anxiety, need for PCP follow up and stress in her life. Discussed a blood pressure journal, low salt diet, exercise. Follow up with PCP and cardiology. She is worried about stroke, reassured her the neurological exam is normal. She is worried about her heart history but has had no chest pain, dyspnea on exertion or any other symptoms. She is stressed about her brothers recent stroke and worried about her family. Offered work up but did discuss that results would probably be normal. AT this point she declines, will see PCP this week, call cardiology as her last angio was normal. Did tell her she could take a 1/2 of an alprazolam if she became very stressed. She understands to return to the ED for persistent headache, neurological changes, chest pain, excessive bleeding or dark and or decreased urine. She took an alprazolam just prior to coming to the ED and would like to get home before it kicks in. advised her blood pressure will come down with this medication also. Departure - Departure Time of Disposition: 23:30 Disposition: Home, Self-Care 01 Clinical Impression: Hypertension, Anxiety - Discharge Information *PRESCRIPTION DRUG MONITORING PROGRAM REVIEWED*: Not Applicable *COPY OF PRESCRIPTION DRUG MONITORING REPORT IN PATIENT THANIA: Not Applicable Instructions: Hypertension, Adult, [id number], Managing Your Hypertension, Managing Anxiety, Adult Additional Instructions: Make and keep an appointment with your PCP this week. Make follow up appointment with cardiology. Continue your current medication and you can use the alprazolam every 6 hours as needed for anxiety. Limit salt in the diet to 2 grams, try to drink water and exercise. Keep a blood pressure diary twice a day at the same time daily for multiple days. Make sure you are calm, resting for 10 minutes prior to doing this. You used to be on amlodipine and isosorbide and may need another blood pressure medication if it remains elevated after this time of stress passes. REturn to the ED for persistent headache, neurological changes, dark colored urine. You are taking plavix which should help prevent stroke. Sepsis Event Note (ED) - Evaluation Sepsis Screening Result: No Definite Risk - Focused Exam Vital Signs: Vital Signs Temp Pulse Resp BP Pulse Ox 02/08/21 23:02 36.5 C 86 20 158/94 H 99
== END 2021-02-08 23:45 | disposition home or self-care (01) ==
LOC: LL.ED 22:27
DX: I12.9 Hypertensive chronic kidney disease with stage 1 through stage 4 chronic kidney disease, or unspecified chronic kidney disease (principal); F41.9 Anxiety disorder, unspecified; I25.10 Atherosclerotic heart disease of native coronary artery without angina pectoris; E78.00 Pure hypercholesterolemia, unspecified; N18.30 Chronic kidney disease, stage 3 unspecified; I25.2 Old myocardial infarction; K21.9 Gastro-esophageal reflux disease without esophagitis; J44.9 Chronic obstructive pulmonary disease, unspecified; Z79.82 Long term (current) use of aspirin; Z79.02 Long term (current) use of antithrombotics/antiplatelets; Z79.899 Other long term (current) drug therapy; Z88.5 Allergy status to narcotic agent
CPT/HCPCS: 99283; 99284

== ENCOUNTER 2022-01-27 14:31 | Emergency (ER) | payer MEDICARE, BC ==
[2022-01-27 16:36] LABS: RESPIRATORY SYNCYTIAL VIR NAA NEGATIVE (NEGATIVE)
[2022-01-27 16:38] LABS: CORONAVIRUS COVID-19 NAA POSITIVE (NEGATIVE)
[2022-01-27 18:42] VITALS: BP 121/71; PULSE 82
== END 2022-01-27 17:23 | disposition home or self-care (01) ==
LOC: LL.ED 14:31
DX: U07.1 COVID-19 (principal); I25.10 Atherosclerotic heart disease of native coronary artery without angina pectoris; J44.9 Chronic obstructive pulmonary disease, unspecified; I10 Essential (primary) hypertension; I25.2 Old myocardial infarction; Z88.5 Allergy status to narcotic agent; Z79.899 Other long term (current) drug therapy; Z79.82 Long term (current) use of aspirin; Z90.49 Acquired absence of other specified parts of digestive tract
CPT/HCPCS: 0241U; 99283

== ENCOUNTER 2025-05-01 13:25 | Emergency (ER) | payer MEDICARE, BC ==
[2025-05-01 14:17] VITALS: BP 130/69; PULSE 83
== END 2025-05-01 14:45 | disposition home or self-care (01) ==
LOC: LL.ED 13:25
DX: M43.6 Torticollis (principal); I12.9 Hypertensive chronic kidney disease with stage 1 through stage 4 chronic kidney disease, or unspecified chronic kidney disease; N18.9 Chronic kidney disease, unspecified; K21.9 Gastro-esophageal reflux disease without esophagitis; Z90.710 Acquired absence of both cervix and uterus; Z88.8 Allergy status to other drugs, medicaments and biological substances; Z79.82 Long term (current) use of aspirin; Z79.899 Other long term (current) drug therapy; Z90.49 Acquired absence of other specified parts of digestive tract
CPT/HCPCS: 71046; 73030-RT; 96372; 99283; J1171